=== PATIENT | male | born 1990 | race Caucasian/White ===

== ENCOUNTER 2016-10-04 21:45 | Inpatient (IN) | payer BC, OTHER ==
[~2016-10-04] VITALS: Ht 177.8 cm; Wt 65.8 kg
--- NOTE | 2016-10-05 02:15 | NUR ---
PREADMISSION NOTE: 26 years old, well-nourished caucasion male met in [facility] for nurse assess. Patient is standing very wobbly and touching various items in room, while making tic-like movements. Patient responds to nurse's greeting and introduction with no eye contact and a deep head nod. Patient asked if he feel that he will be able to participate in admission process. After some prompting from nurse for answer, patient nodded his head, 'yes', with his eyes shut. Vital signs are: 97.5-87-14 121/63, O2 Sat 97%. Patient denies pain any seizure history as well as any allergies to any food or medications. Patient given simple but clear explanations regarding [facility] floor protocols as well as medication reconciliation and controlled medications disposal policies.
[2016-10-05] MEDS ORDERED: MAG HYDROX/AL HYDROX/SIMETH 30 ML LIQUID UDC PO PRN (02:30)
[2016-10-05] MEDS ORDERED: LORAZEPAM 2 MG/1 ML VIAL IM PRN (02:30)
[2016-10-05] MEDS ORDERED: ONDANSETRON 4 MG/2 ML VIAL IM PRN (02:30)
[2016-10-05] MEDS ORDERED: CLONIDINE HCL 0.1 MG TABLET PO PRN (02:30)
[2016-10-05] MEDS ORDERED: DIAZEPAM 10 MG TABLET PO PRN ×2 (02:30)
[2016-10-05] MEDS ORDERED: LOPERAMIDE HCL 2 MG CAPSULE PO PRN ×2 (02:30)
[2016-10-05] MEDS ORDERED: DICYCLOMINE HCL 20 MG TABLET PO PRN (02:30)
[2016-10-05] MEDS ORDERED: DIAZEPAM 5 MG TABLET PO PRN (02:30)
[2016-10-05] MEDS ORDERED: ONDANSETRON ODT 4 MG TAB.RAPDIS SL PRN (02:30)
[2016-10-05] MEDS ORDERED: BUPRENORPHINE HCL 2 MG TAB.SUBL SL PRN (02:30)
--- NOTE | 2016-10-05 02:35 | NUR ---
ADMISSION NOTE: Patient admitted to [facility], room # 314, ambulatory with slightly wobbly gait, after being given tour of floor by both nurse and STATION HELPER. Patient's color is dark pink and his skin is warm, slightly moist and intact. Lung sounds are noted clearly bilaterally and active bowel sounds are noted X 4 abdominal Quads, per auscultation. Patient is oriented to person, place and his personal situation. Reoriented to day, date and time. Patient uncooperative and resistive to admission process and he states, " Why are you basking me all this question? I think that you are singling me out for some reason, I don't know". Patient must be constantly prompted and encouraged to answer admit questions and questions must repeated frequently. Patient states that he has 3 PCP's, however he "would rather not name them. Patient denies allergy or seizure history. Nutritional supplements brought with patient reconciled per protocol. Patient is admitted for: 1) heroin use, daily 2 grams, smoked. Last use 10/05/16, 1/4 gram. Patient has been using heroin for 3 years. 2) Etizolam use, daily 4 mg p.o. Last use 10/05/16 1 mg. Patient has been using Etizolam for 6 years. 3) Meth use daily, 1/4 gram smoked. Last use 10/05/16, 1/8 gram. Patient has been using meth for 7 years. 4) Phenobarbital daily use, 60 mg p.o.. Last use unknown and it is unknown just how long patient has been using phenobarbital. 5) cocaine use, " a few times per year", snorted, 3.5 grams. last use a few months ago, 4 grams. Patient states that the longest sobriety period was 7 months, from 01/2016 to 07/2016. Patient states that he has a history of anxiety and osteogenesis imperfecta and also a history of " over 50 fractures and many surgeries. V/S are: 97.5-78-16 111/63, O2 Sat 98, CIWA 13. Patient is very hostile and uncooperative and admission process was very time-consuming and difficult. Charge nurse, STATION HELPER, Rubens and this nurse had to frequently talk gently with patient about his cooperation, and redirection to appropriate behavior was constant. Patient unable to focus and was openly hostile overall. Bed is locked and in lowest position, bed rails are up X 2 and call light within patient's easy reach.
[2016-10-05 03:06] LABS: *AMPHETAMINE, URINE POSITIVE (NEGATIVE); *BARBITURATE, URINE POSITIVE (NEGATIVE); *CANNABINOID, URINE POSITIVE (NEGATIVE); *COCCAINE, URINE NEGATIVE (NEGATIVE); *OPIATE, URINE POSITIVE (NEGATIVE); *PHENCYCLIDINE SCREEN,URINE NEGATIVE (NEGATIVE)
[2016-10-05] MEDS ORDERED: MAGN400C PO (03:24)
[2016-10-05] MEDS ORDERED: MV-M1TAB37 PO (03:24)
[2016-10-05] MEDS ORDERED: NICO-724 BC (03:24)
[2016-10-05] MEDS ORDERED: DIPH25CA83 PO (03:24)
[2016-10-05] MEDS ORDERED: 5-HY50CA2 PO (03:24)
[2016-10-05] MEDS ORDERED: [UNRECOGNIZED DRUG - CODE] PO (03:24)
[2016-10-05] MEDS: METHOCARBAMOL 750 MG TABLET PO PRN ×2 (03:33→21:19)
--- NOTE | 2016-10-05 03:33 | NUR ---
PRN MEDICATION: Robaxin 750 mg p.o. given for c/o left side of face, neck and shoulder pain, 6/10 pain scale and Valium 5 mg p.o. given for "high anxiety", CIWA 8.
[2016-10-05] MEDS ORDERED: METHOCARBAMOL 750 MG TABLET ONE (03:37)
[2016-10-05] MEDS ORDERED: DIAZEPAM 5 MG TABLET ONE (03:38)
[2016-10-05 04:00] VITALS: BP 111/63
--- NOTE | 2016-10-05 04:33 | NUR ---
REASSESSMENT PRN MEDICATIONS: Patient remains awake and requesting "more medications. Patient states that he still " feels really bad" Pain level " is the same", 6/10 pain scale.
[2016-10-05] MEDS ORDERED: [UNRECOGNIZED DRUG - OTHER] PO (04:39)
[2016-10-05] MEDS ORDERED: KETOROLAC TROMETHAMINE 30 MG INJ IM ONE (05:00)
[2016-10-05] MEDS ORDERED: LORAZEPAM 1 MG TABLET PO ONE (05:00)
[2016-10-05] MEDS: diphenhydrAMINE 50 MG CAPSULE PO PRN ×2 (05:30→21:19)
--- NOTE | 2016-10-05 05:30 | NUR ---
ONE TIME Ativan, ONE TIME Toradol, and PRN Benadryl Pt c/o severe anxiety and withdrawal symptoms. Pt stated that he has the same feeling from benzodiazepine withdrawal. CIWA noted at 12. Pt also c/o pain on L shoulder due to hx of previous sx. Pain noted 9/10 on L shoulder and generalized body pain. COWS noted at 10. Pt refused PRN Subutex due to recent Heroin use and would like to prevent precipitated withdrawals. MD made aware with new order for 2mg Ativan ONE TIME and 30mg Toradol ONE TIME. New orders noted and carried out. Pt requested sleep med as he had not slept for the past night. Benadryl PRN given as ordered. Will continue to monitor.
[2016-10-05] MEDS ORDERED: diphenhydrAMINE 50 MG CAPSULE ONE (05:37)
[2016-10-05] MEDS ORDERED: KETOROLAC TROMETHAMINE 30 MG INJ ONE (05:37)
[2016-10-05] MEDS ORDERED: LORAZEPAM 1 MG TABLET ONE (05:38)
--- NOTE | 2016-10-05 06:00 | NUR ---
Ativan and Toradol Reassessment: Pt stated that he feels "a little better". Pt still reports some anxiety but less than before. Ativan effective. Pt reported relief from pain. Current pain level 5/10. Toradol PRN effective.
--- NOTE | 2016-10-05 06:30 | NUR ---
0630 Patient slept a total of 1 hour and he had 547 ml p.o. total intake. Patient had 1 void and no stools. Patient is presently sleeping with eyes closed and respirations quiet, even at 12. V/SS afebrile, last CIWA 8 at 0400, COWS 9.
--- NOTE | 2016-10-05 07:15 | NUR ---
START OF SHIFT NOTE: RECEIVED PT FROM COMMUNICATIONS EQUIPMENT INSTALLER NURSE, PT NOTED TO BE SEDATED AFTER RECEIVING MULTIPLE DOSES OF PRN MEDICATIONS, PT APPEARED TO BE ANXIOUS, AGITATED AND RESTLESS DURING ADMISSION PROCESS. [facility] OPIATE/BENZO/METH WITHDRAWAL/DEPENDENCE. PTS LAST NOTED COWS 10 AND CIWA 13. WILL MONITOR FOR S/S OF WITHDRAWAL, MEET PT'S NEEDS AND ENCOURAGE TO JOIN GROUPS AND ACTIVITIES THROUGHOUT THE SHIFT.
[2016-10-05 08:10] LABS: BASOPHILS # (AUTO) 0.1 K/uL (0.0-8.0); BASOPHILS % (AUTO) 1.1 % (0.0-2.0); EOSINOPHILS # (AUTO) 0.2 K/uL (0.0-0.7); EOSINOPHILS % (AUTO) 2.6 % (0.0-7.0); HEMATOCRIT 41.2 % (40-50); HEMOGLOBIN 13.6 G/DL (14.0-18.0); LYMPHOCYTES # (AUTO) 3.2 K/UL (0.8-4.8); LYMPHOCYTES % (AUTO) 54.4 % (20.5-51.5); MEAN CORPUSCULAR HEMOGLOBIN 28.7 UUG (27.0-31.0); MEAN CORPUSCULAR HGB CONC 33 g/dL (32.0-37.0); MEAN CORPUSCULAR VOLUME 87.2 FL (82.0-92.0); MONOCYTES # (AUTO) 0.7 K/UL (0.1-1.30); MONOCYTES % (AUTO) 12.4 % (0.0-11.0); NEUTROPHILS # (AUTO) 1.8 K/UL (1.8-8.9); NEUTROPHILS % (AUTO) 29.5 % (38.5-71.5); PLATELET COUNT (AUTO) 249 K/UL (150-450); RED BLOOD CELL COUNT(AUTO) 4.73 MIL/UL (4.7-6.1)
[2016-10-05 08:20] LABS: ALANINE AMINOTRANSFERASE 21 U/L (16-63); ALKALINE PHOSPHATASE 63 U/L (50-136); AMYLASE 40 U/L (25-115); ASPARTATE AMINOTRANSFERASE 17 U/L (15-37); BILIRUBIN,TOTAL 0.5 mg/dL (0.2-1.0); CARBON DIOXIDE 29 mmol/L (21-32); CHLORIDE 104 mmol/L (98-107); CREATININE 0.9 mg/dL (0.6-1.3); GLUCOSE 92 mg/dL (74-106); LIPASE 118 U/L (73-393); MAGNESIUM 2.3 mg/dL (1.8-2.4); POTASSIUM 3.6 mmol/L (3.5-5.1); UREA NITROGEN, BLOOD 32 mg/dL (7-18)
[2016-10-05 08:21] LABS: ETHANOL < 3 MG/DL (0-0)
[2016-10-05 08:32] LABS: THYROID STIMULATING HORMONE 0.836 mIU/mL (0.358-3.740)
[2016-10-05] MEDS: MULTIVITAMINS,THERAPEUTIC TABLET PO SCH (08:42)
[2016-10-05 08:50] VITALS: BP 100/61
--- NOTE | 2016-10-05 09:11 | NUR ---
COWS/CIWA DEFERRED PT IS SLEEPING AFTER BEING AWAKE MAJORITY OF THE NIGHT. PT'S V/S WNL.
[2016-10-05] MEDS ORDERED: NICOTINE POLACRILEX 2 MG LOZENGE BC PRN (09:45)
[2016-10-05] MEDS: BUPRENORPHINE HCL 2 MG TAB.SUBL SL SCH ×3 (12:24→21:18)
[2016-10-05] MEDS: DIAZEPAM 10 MG TABLET PO SCH ×3 (12:24→21:19)
[2016-10-05 12:28] VITALS: BP 101/62
[2016-10-05] MEDS: GABAPENTIN 300 MG CAPSULE PO SCH ×2 (15:00→21:19)
[2016-10-05 17:11] VITALS: BP 99/63
--- NOTE | 2016-10-05 18:59 | NUR ---
END OF SHIFT NOTE: PT IS IN STABLE CONDITION AT THIS TIME, PT IS ALERT AND RESTING IN BED. PT IS ADMITTED FOR OPIATE/BENZO/METH WITHDRAWAL/DEPENDENCE. PT WAS STARTED ON A CUSTOMIZED 4 DAY VALIUM AND SUBUTEX TAPER. PT IS NO LONGER AGITATED AND COMPLIANT WITH PLAN OF CARE. PT TOLERATED DOSES ADMINISTERED WITHOUT A/R NOTED. WILL ENDORSE PT TO CARPENTER'S ASSISTANT NURSE. PTS LAST COWS 3 AND CIWA 2.
--- NOTE | 2016-10-05 19:15 | NUR ---
START OF SHIFT NOTE : Patient is 26 years old male admitted to [facility] for HEROIN, ETIZOLAM, METH, COCAINE dependence on 10/05/2016 . Patient is oriented to person, place and his personal situation. Patient cooperative and friendly this time. Patient states that he has a history of anxiety and osteogenesis imperfecta and also a history of " over 50 fractures and many surgeries. Pt. complains of sleeplessness, increased level of anxiety and muscle spasm . Safety measures in place : bed on lowest position with side rails x2 up for safety, call light within reach. Will continue to monitor closely and offer help.
[2016-10-05 20:00] VITALS: BP 111/63
--- NOTE | 2016-10-05 21:00 | NUR ---
PRN VISTARIL, NICOTINE GUM, ROBAXIN, BENADRYL Pt. complains of increased level of anxiety, sleeplessness, mild muscle spasm. PRN VISTARIL , NICOTINE GUM, ROBAXIN, BENADRYL given as ordered. Safety measures in place : bed on lowest position with side rails x2 up for safety, call light within reach. Will continue to monitor closely and offer help.
[2016-10-05] MEDS: NICOTINE POLACRILEX 4 MG GUM-PK OF TEN BC PRN (21:19)
[2016-10-05] MEDS: HYDROXYZINE PAMOATE 25 MG CAPSULE PO PRN (21:19)
--- NOTE | 2016-10-05 22:00 | NUR ---
REASSESSMENT VISTARIL, NICOTINE GUM, ROBAXIN, BENADRYL Pt. is sleeping, RR=16, unlabored and even. Safety measures in place : bed on lowest position with side rails x2 up for safety, call light within reach. Will continue to monitor closely and offer help.
[2016-10-06 04:00] VITALS: BP 104/66
--- NOTE | 2016-10-06 06:33 | NUR ---
END OF SHIFT NOTE : Patient is 26 years old male admitted to [facility] for HEROIN, ETIZOLAM, METH, COCAINE dependence on 10/05/2016 . Patient is oriented to person, place and his personal situation. Patient cooperative and friendly this time. Patient states that he has a history of anxiety and osteogenesis imperfecta and also a history of " over 50 fractures and many surgeries. Pt. complains of sleeplessness, increased level of anxiety and muscle spasm . Pt remains compliant with the treatment plan. PRNs NICOTINE GUM, VISTARIL, ROBAXIN, BENADRYL given during my shift. V/S remain WNL. RR=16, even and unlabored, lungs clear upon auscultation, abdomen soft and non- distended. Pt denies nausea, vomiting and diarrhea. LAST CIWA=3 ,COWS=3 at 0400 , UCTYPI=419 ml, voided x1 , slept 3 hours. Safety measures in place : bed on lowest position with side rails x2 up for safety, call light within reach. Will continue to monitor closely and offer help.
--- NOTE | 2016-10-06 07:10 | NUR ---
Start of shift note SBAR report rcv'd. pt was admitted for opiate and benzo dependence, methamphetamine and cocaine abuse. Pt has a PMHx of anxiety and osteogenesis imperfection. Pt is on a full code, denies any allergies to any medications and is on a regular diet. All needs addressed at this time. Pt has no complaints at this time. Will continue to monitor pt.
[2016-10-06 08:00] VITALS: BP 105/74
[2016-10-06] MEDS: BUPRENORPHINE HCL 2 MG TAB.SUBL SL SCH ×3 (08:03→20:29)
[2016-10-06] MEDS: MULTIVITAMINS,THERAPEUTIC TABLET PO SCH (08:03)
[2016-10-06] MEDS: DIAZEPAM 10 MG TABLET PO SCH ×3 (08:03→20:28)
[2016-10-06] MEDS: GABAPENTIN 300 MG CAPSULE PO SCH (08:03)
[2016-10-06 08:06] LABS: HEPATITIS B SURFACE AG Negative (Negative)
[2016-10-06] MEDS ORDERED: TUBERCULIN,PURIF.PROT.DERIV. 5 TU/0.1 ML TEST ID ONE (09:00)
[2016-10-06] MEDS ORDERED: BACLOFEN 10 MG TABLET PO ONE (11:00)
[2016-10-06] MEDS ORDERED: CLONIDINE HCL 0.1 MG TABLET PO ONE (11:00)
[2016-10-06] MEDS ORDERED: DIAZEPAM 10 MG TABLET PO ONE (11:00)
[2016-10-06] MEDS: NICOTINE 21 MG/24HR PATCH TD SCH (11:12)
--- NOTE | 2016-10-06 11:45 | NUR ---
PRN administration Pt c/o pain 10/05 in shoulder, administered PRN motrin per MD order. Will continue to monitor pt.
[2016-10-06] MEDS: IBUPROFEN 400 MG TABLET PO PRN (11:46)
[2016-10-06 12:00] VITALS: BP 105/72
--- NOTE | 2016-10-06 12:15 | NUR ---
Onetime order reassessment At 1115 at time of onetime order administration, pt had a COWS of 10 and a CIWA of 10. After administration of onetime medications, pt has a COWS of 7 and CIWA of 6. Pt states "I feel much better". Will continue to monitor pt.
--- NOTE | 2016-10-06 12:44 | NUR ---
Reassessment Pt reports that his pain has reduced to a pain level of 4/10. Pt states that he is comfortable. All needs addressed at this time. Will continue to monitor pt.
[2016-10-06] MEDS: BACLOFEN 10 MG TABLET PO SCH ×2 (15:10→20:28)
[2016-10-06] MEDS: CLONIDINE HCL 0.1 MG TABLET PO SCH ×2 (15:10→20:29)
[2016-10-06] MEDS: GABAPENTIN 400 MG CAPSULE PO SCH ×2 (15:10→20:28)
[2016-10-06 16:00] VITALS: BP 115/59
[2016-10-06] MEDS: HYDROXYZINE PAMOATE 25 MG CAPSULE PO PRN (18:54)
--- NOTE | 2016-10-06 18:55 | NUR ---
PRN administration Pt c/o anxiety. Pt states that he is very anxious, requesting vistaril. Administered medication per MD order. Will endorse follow up assessment to oncoming nurse. All other needs addressed at this time.
--- NOTE | 2016-10-06 18:59 | NUR ---
End of shift note pt was admitted for opiate and benzo dependence, Phenobarbital dependence, methamphetamine and cocaine abuse. Pt has a PMHx of anxiety and osteogenesis imperfecta. Pt is on a valium and Subutex taper, and is tolerating well. Pt is on a full code, denies any allergies to any medications and is on a regular diet. At the 0800 pt had a COWS of 11 and CIWA of 13, pt was given onetime doses of valium Clonidine, valium and a nicotine patch. Pt was given full education regarding his medications with print outs. Pt verbalized his understanding. Pt verbalized his understanding that he should not smoke cigarettes while wearing the patch. At 1600 pt had a COWS of 5 and CIWA of 4. Pt states that he is comfortable at this time. Pt drank 2646ml of fluids, ate 100% of meals, had 5 voids and 2 BMs during the shift. Pt has no further complaints. Will endorse SBAR to oncoming shift.
--- NOTE | 2016-10-06 19:05 | NUR ---
Start of Shift Patient Received. Patient is in his room, awake, alert and verbally responsive. Breathing even and non labored. No signs of pain or discomfort noted. Patient is a 26 year old male that was admitted on 10/05/16 for Opiate and Etizolam Dependence. Patient was admitted under the care of Dr. Gaines and is currently receiving a 4 day Subutex and 4 day Valium taper. Patient verbalized no known allergies, wishes to be full code, following a regular diet, placed on fall and seizure precautions, skin noted intact. Per endorsement, patient was given PRN Vistaril for increased anxiety. Nicotine patch noted to the left upper extremity. All needs attended to promptly. Will continue plan of care as ordered.
[2016-10-06 20:21] VITALS: BP 112/65
[2016-10-07] VITALS: BP 102/64
[2016-10-07 04:00] VITALS: BP 102/61
--- NOTE | 2016-10-07 07:08 | NUR ---
End of Shift Patient is in bed sleeping. Breathing even and non labored. No signs of pain or discomfort noted. Patient is a 26 year old male that was admitted on 10/05/16 for Opiate and Etizolam Dependence. Patient was admitted under the care of Dr. Gaines and is currently receiving a 4 day Subutex and 4 day Valium taper. Patient verbalized no known allergies, wishes to be full code, following a regular diet, placed on fall and seizure precautions, skin noted intact. No PRN medication administered. Last noted COWS noted 4 and CIWA noted 4. All needs attended to promptly. Will endorse to continue plan of care as ordered.
--- NOTE | 2016-10-07 07:09 | NUR ---
Start of Shift Endorsement received from nightshift nurse. Pt is a 26 y/o male admitted for Heroin, Meth and Cocaine dependence. Pt has been placed on a 4 day Valium and 4 day Subutex taper. Pt is tolerating the taper and moderately withdrawing at this time AEB CIWA 4, COWS 4. Pt did not receive any PRN medications during nightshift. Pt reports sleeping 7 hours, reports feeling rested. VS WNL, Full CODE. PT is alert and oriented x4. Pt is in STABLE condition at this time. Remains compliant with medication and diet regimen. All needs have been met, All safety measures in place per hospital policy. Bed in lowest position, side rails up x2, call-light within reach. Will continue to monitor
[2016-10-07 08:00] VITALS: BP 103/64
[2016-10-07] MEDS: GABAPENTIN 400 MG CAPSULE PO SCH (08:14)
[2016-10-07] MEDS: BACLOFEN 10 MG TABLET PO SCH ×3 (08:14→20:42)
[2016-10-07] MEDS: CLONIDINE HCL 0.1 MG TABLET PO SCH ×3 (08:15→20:43)
[2016-10-07] MEDS: MULTIVITAMINS,THERAPEUTIC TABLET PO SCH (08:15)
[2016-10-07] MEDS: NICOTINE 21 MG/24HR PATCH TD SCH (08:15)
[2016-10-07] MEDS: DIAZEPAM 5 MG TABLET PO SCH ×4 (08:15→20:43)
[2016-10-07] MEDS ORDERED: BUPRENORPHINE HCL 2 MG TAB.SUBL SL SCH (09:00)
[2016-10-07] MEDS ORDERED: DIAZEPAM 5 MG TABLET PO ONE (11:00)
[2016-10-07 12:00] VITALS: BP 118/71
[2016-10-07] MEDS: GABAPENTIN 300 MG CAPSULE PO SCH ×2 (14:55→20:42)
[2016-10-07] MEDS: BUPRENORPHINE HCL 2 MG TAB.SUBL SL SCH ×2 (14:55→20:43)
[2016-10-07 16:00] VITALS: BP 120/68
--- NOTE | 2016-10-07 18:51 | NUR ---
End of Shift Endorsement given to nightshift nurse. Pt is a 26 y/o male admitted for Heroin, Meth and Cocaine dependence. Pt has been placed on a 4 day Valium and 4 day Subutex taper. Pt is tolerating the taper and moderately withdrawing at this time AEB CIWA 3, COWS 3. Pt did not receive any PRN medications. Educated pt on S/E of medications and withdrawal symptoms. Encouraged pt to participate in groups and activities. Pt participated in groups and activities. Educated pt on diet regimen and encouraged to drink more fluids. Intake: 2830ml, Void x4, BM x1. VS WNL, Full CODE. PT is alert and oriented x4. Pt is in STABLE condition at this time. Remains compliant with medication and diet regimen. All needs have been met, All safety measures in place per hospital policy. Bed in lowest position, side rails up x2, call-light within reach. Will continue to monitor
--- NOTE | 2016-10-07 19:15 | NUR ---
Start of Shift Patient Received. Patient is in his room, awake, alert and verbally responsive. Breathing even and non labored. No signs of pain or discomfort noted. Patient is a 26 year old male, admitted on 10/05/16 for Opiate and Etizolam Dependence. Patient is currently receiving a 4 day Subutex and 4 day Valium taper. No known allergies, full code, Regular diet, fall and seizure precautions, skin noted intact. Per endorsement, patients last noted CIWA 3 and COWS 3. All needs attended to promptly. Will continue plan of care as ordered.
[2016-10-07 20:32] VITALS: BP 105/72
[2016-10-08 00:10] VITALS: BP 102/63
[2016-10-08 04:30] VITALS: BP 112/72
[2016-10-08] MEDS: HYDROXYZINE PAMOATE 25 MG CAPSULE PO PRN ×3 (04:59→22:15)
[2016-10-08] MEDS: IBUPROFEN 400 MG TABLET PO PRN ×2 (04:59→10:26)
[2016-10-08] MEDS: METHOCARBAMOL 750 MG TABLET PO PRN ×2 (04:59→22:15)
--- NOTE | 2016-10-08 05:08 | NUR ---
PRN Medication Administration Patient noted awake and verbalizing increased pain to the his left shoulder of 6/10, back spasms, and increased anxiety. PRN Motrin, vistaril and robaxin administered as per order. Will continue to monitor for effectiveness.
--- NOTE | 2016-10-08 06:15 | NUR ---
PRN Medication Reassessment Patient noted in bed sleeping. Breathing even and non labored. No signs of pain or discomfort noted. PRN Motrin, Robaxin, and Vistaril administered and noted to be effective. Patient continues to sleep well with no interruption. Will continue to monitor.
--- NOTE | 2016-10-08 07:19 | NUR ---
End of Shift Patient is in bed sleeping. Breathing even and non labored. No signs of pain or discomfort noted. Patient is a 26 year old male that was admitted on 10/05/16 for Opiate and Etizolam Dependence. Patient was admitted under the care of Dr. Gaines and is currently receiving a 4 day Subutex and 4 day Valium taper. Patient verbalized no known allergies, wishes to be full code, following a regular diet, placed on fall and seizure precautions, skin noted intact. Patient was given PRN Motrin, Robaxin, and Vistaril with medication noted to be effective. All needs attended to promptly. Will endorse to continue plan of care as ordered.
[2016-10-08 08:00] VITALS: BP 110/66
[2016-10-08] MEDS: CLONIDINE HCL 0.1 MG TABLET PO SCH ×3 (08:17→20:23)
[2016-10-08] MEDS: GABAPENTIN 300 MG CAPSULE PO SCH ×3 (08:17→20:22)
[2016-10-08] MEDS: DIAZEPAM 5 MG TABLET PO SCH ×3 (08:17→20:23)
[2016-10-08] MEDS: BACLOFEN 10 MG TABLET PO SCH ×3 (08:17→20:23)
[2016-10-08] MEDS: MULTIVITAMINS,THERAPEUTIC TABLET PO SCH (08:19)
[2016-10-08] MEDS: BUPRENORPHINE HCL 2 MG TAB.SUBL SL SCH ×3 (08:20→20:22)
[2016-10-08] MEDS: ACETAMINOPHEN 325 MG TABLET PO PRN ×2 (08:21→20:23)
--- NOTE | 2016-10-08 08:21 | NUR ---
PRN TYLENOL Patient complains of of back pain and L shoulder pain 06/05. PRN Tylenol given. Will continue to monitor patient.
--- NOTE | 2016-10-08 08:30 | NUR ---
START OF SHIFT Received report from enterprise resource analyst nurse. Patient is 26 year old male admitted for medically supervised withdrawal from heroin and sedative-hypnotics. Patient is full code with NKA. On assessment this AM:COWS: 2. Denies SOB, chest pain. Vitals signs: WNL. Reports tremors, sweating, and anxiety, backache and L shoulder pain 06/05. Med compliant with AM meds. On 4-Day Sutubex and 4-day Valium taper. PRN Tylenol given. Encouraged patient to hydrate with fluids. Patient consumed about 75% of his breakfast. Patient was encouraged to attend group meetings today. Patient goes out for smoke with escorts. Will continue to monitor patient.
[2016-10-08] MEDS: NICOTINE 21 MG/24HR PATCH TD SCH ×2 (09:00→13:06)
--- NOTE | 2016-10-08 09:21 | NUR ---
REASSESSMENT PRN TYLENOL Patient reports decreased pain, 2/10 at this time.
--- NOTE | 2016-10-08 10:26 | NUR ---
RN NOTE Patient reports he cut himself on L eye with the edge of the bathroom sink when he tried to supervisor metal hanging an item he dropped. Very small laceration noted with small amount of blood. Wound area was cleansed with gauze and NS, refused to have it covered with bandaid. Kept open to air at this time per patient's request, pt. requesting for ointment to protect wound.
--- NOTE | 2016-10-08 10:26 | NUR ---
PRN IBUPROFEN Patient complains of pain 6/10 on his L side of his eye, PRN ibuprofen given, will continue to monitor patient.
[2016-10-08] MEDS ORDERED: METHYL SALICYLATE/MENTHOL CREAM 28 GM TUBE TOP PRN (11:15)
--- NOTE | 2016-10-08 11:26 | NUR ---
REASSESSMENT PRN IBUPROFEN Patient reports pain decreased to 3/10.
[2016-10-08 12:00] VITALS: BP 99/56
--- NOTE | 2016-10-08 12:45 | NUR ---
PRN VISTARIL Patient complains of anxiety, prn vistaril given.
[2016-10-08] MEDS: NICOTINE POLACRILEX 4 MG GUM-PK OF TEN BC PRN ×3 (13:06→22:16)
[2016-10-08] MEDS: NEOMY/BACITRAC/POLYMI OINT 28.35 GM TUBE TOP SCH ×2 (13:07→17:29)
--- NOTE | 2016-10-08 13:45 | NUR ---
REASESSMENT VISTARIL PAtient reports anxiety decreased.
--- NOTE | 2016-10-08 14:35 | NUR ---
REASSESSMENT CLONIDINE Patient reports anxiety decreased
--- NOTE | 2016-10-08 15:35 | NUR ---
PRN CLONIDINE Patient complains of anxiety. PRN clonidine givne, BP 112/70
[2016-10-08 16:00] VITALS: BP 108/68
[2016-10-08] MEDS: MIRALAX 17 GM POWD.PACK PO PRN (17:28)
--- NOTE | 2016-10-08 17:28 | NUR ---
PRN MIRALAX POWDER Patient complains of constipation, PRN miralax given
--- NOTE | 2016-10-08 17:28 | NUR ---
PRN BENGAY Patient complains of pain on L shoulder 5.10. PRN bengay cream given
--- NOTE | 2016-10-08 18:28 | NUR ---
REASSESSMENT [facility] PAtient reposrts pain decreased 3/10.
--- NOTE | 2016-10-08 18:28 | NUR ---
REASSESSMENT MIRALAX Patient has not no BM at this time. Will continue to monitor effectiveness of med
[2016-10-08 20:00] VITALS: BP 104/65
--- NOTE | 2016-10-08 20:00 | NUR ---
START OF SHIFT NOTE PATIENT IN HIS ROOM, UPON GREETING , PATIENT STATES HE'S ANXIOUS, SWEATING, HAS STUFFY NOSE, STOMACH CRAMPS, OBSERVED TREMORS, C/O GENERALIZED BODY ACHES 7/10, UNABLE TO PASS STOOL, PER PATIENT MIRALAX DID NOT WORK,NO N/V, APPETITE IS GOOD AND DRINKING FLUIDS WELL. RECEIVED REPORT FROM DAY SHIFT NURSE. PATIENT IS A 26 YEAR OLD MALE, ADMITTED FOR SANDRA/ETIZOLAM/PHENOBARBITAL,METH AND COCAINE DEPENDENCE. PATIENT IS ON 4TH DAY OF HIS 4 DAY SUBUTEX AND VALIUM TAPER. PATIENT IS FULL CODE, REGULAR DIET AND NO KNOWN ALLERGY. UPON ADMISSION, PATIENT REPORTED USING HEROIN 2 GRAMS FOR 2 1/2 YEARS, ETIZOLAM 4 MG FOR "COUPLE OF WEEKS",METH 1/4 GRAM FOR 2 YEARS, COCAINE 3.5 GRAMS (FEW TIMES PER YEAR) FOR 8 YEARS AND PHENOBARBITAL 60 MG FOR 3 MONTHS. PATIENT REPORTS PMH OF ANXIETY AND OSTEOGENESIS IMPERFECTA. NO SEIZURE HISTORY. PATIENT HAD SMALL LACERATION ON LEFT EYE WITH TRIPLE ANTIBIOTIC TREATMENT. PATIENT WAS GIVEN MIRALAX , VISTARIL, IBUPROFEN, BENGAY AND NICOTINE GUM. LAST COWS 4 AND CIWA 4. ON FALL PRECAUTION. SAFETY MEASURES IN PLACE. CALL LIGHT IN REACH. WILL CONTINUE TO MONITOR
[2016-10-08] MEDS: MAGNESIUM HYDROXIDE 30 ML LIQUID UDC PO PRN (20:23)
[2016-10-08] MEDS: diphenhydrAMINE 50 MG CAPSULE PO PRN (20:23)
--- NOTE | 2016-10-08 20:23 | NUR ---
PRN MOM/TYLENOL/BENADRYL ADMINISTRATION PATIENT C/O CONSTIPATION, GENERALIZED BODY ACHES 10/05 AND REQUESTS FOR SLEEP AID . PRN MOM,TYLENOL AND BENADRYL GIVEN. WILL MONITOR FOR EFFECTIVENESS
--- NOTE | 2016-10-08 21:23 | NUR ---
PRN TYLENOL RE-ASSESSMENT PATIENT STATES PAIN LEVEL 4/10 AT THIS TIME, TOLERABLE . WILL CONTINUE TO MONITOR
--- NOTE | 2016-10-08 22:15 | NUR ---
PRN NICOTINE GUM/ROBAXIN AND VISTARIL ADMINISTRATION PATIENT C/O 6/10 BACK PAIN , ANXIETY AND REQUESTS FOR NICOTINE GUM. PRN ROBAXIN , VISTARIL AND NICOTINE GUM GIVEN. WILL MONITOR FOR EFFECTIVENESS
--- NOTE | 2016-10-09 | NUR ---
COWS/CIWA/VS PATIENT ASLEEP. CIWA/COWS UNABLE TO ASSESS. NO S/S OF DISTRESS. RESPIRATION EVEN AND UNLABORED. RR 14. SAFETY MEASURES IN PLACE. CALL LIGHT IN REACH. WILL CONTINUE TO MONITOR
--- NOTE | 2016-10-09 04:00 | NUR ---
COWS/CIWA/VS PATIENT ASLEEP. CIWA/COWS UNABLE TO ASSESS. NO S/S OF DISTRESS. RESPIRATION EVEN AND UNLABORED. RR 15. SAFETY MEASURES IN PLACE. CALL LIGHT IN REACH. WILL CONTINUE TO MONITOR
--- NOTE | 2016-10-09 07:12 | NUR ---
END OF SHIFT NOTE MONITORED PATIENT THROUGHOUT THE SHIFT. PATIENT STATES HE'S ANXIOUS, SWEATING, HAS STUFFY NOSE, STOMACH CRAMPS, OBSERVED TREMORS, C/O GENERALIZED BODY ACHES 7/10, UNABLE TO PASS STOOL, PER PATIENT MIRALAX DID NOT WORK,NO N/V, APPETITE IS GOOD AND DRINKING FLUIDS WELL BEGINNING OF SHIFT. PATIENT IS A 26 YEAR OLD MALE, ADMITTED FOR SANDRA/ETIZOLAM/PHENOBARBITAL,METH AND COCAINE DEPENDENCE. PATIENT IS ON 4TH DAY OF HIS 4 DAY SUBUTEX AND VALIUM TAPER, TOLERATED WELL. NO ADVERSE REACTION. PATIENT IS FULL CODE, REGULAR DIET AND NO KNOWN ALLERGY. UPON ADMISSION, PATIENT REPORTED USING HEROIN 2 GRAMS FOR 2 1/2 YEARS, ETIZOLAM 4 MG FOR "COUPLE OF WEEKS",METH 1/4 GRAM FOR 2 YEARS, COCAINE 3.5 GRAMS (FEW TIMES PER YEAR) FOR 8 YEARS AND PHENOBARBITAL 60 MG FOR 3 MONTHS. PATIENT REPORTS PMH OF ANXIETY AND OSTEOGENESIS IMPERFECTA. NO SEIZURE HISTORY. PATIENT HAD SMALL LACERATION ON LEFT EYE WITH TRIPLE ANTIBIOTIC TREATMENT. PATIENT WAS GIVEN MOM, TYLENOL AND BENADRYL AT 2022 , VISTARIL, ROBAXIN AND NICOTINE GUM AT 2214. PATIENT COMPLIANT WITH MEDICATIONS AND TREATMENT PLAN. ON FALL PRECAUTION. SAFETY MEASURES IN PLACE. CALL LIGHT IN REACH. WILL CONTINUE TO MONITOR. SLEPT 1 HOUR, PATIENT STATES HE TRIED TO SLEEP BUT UNABLE TO. FLUID INTAKE 1,300 ML. VOIDED X 4. NO BM. LAST COWS 9 AND CIWA 6. MOM NOT EFFECTIVE, ENDORSED TO NEXT SHIFT. CONTINUE TO ENCOURAGE FLUIDS.
[2016-10-09 08:00] VITALS: BP 107/63
[2016-10-09] MEDS: BACLOFEN 10 MG TABLET PO SCH ×3 (08:43→20:49)
[2016-10-09] MEDS: MULTIVITAMINS,THERAPEUTIC TABLET PO SCH (08:46)
[2016-10-09] MEDS: GABAPENTIN 300 MG CAPSULE PO SCH ×3 (08:46→20:49)
[2016-10-09] MEDS: DIAZEPAM 5 MG TABLET PO SCH ×2 (08:46→20:49)
[2016-10-09] MEDS: NEOMY/BACITRAC/POLYMI OINT 28.35 GM TUBE TOP SCH ×2 (08:47→17:08)
[2016-10-09] MEDS: BUPRENORPHINE HCL 2 MG TAB.SUBL SL SCH ×2 (08:47→20:50)
[2016-10-09] MEDS: NICOTINE 21 MG/24HR PATCH TD SCH (08:48)
[2016-10-09] MEDS: IBUPROFEN 600 MG TABLET PO PRN ×2 (08:51→20:59)
[2016-10-09] MEDS: METHOCARBAMOL 750 MG TABLET PO PRN ×2 (08:51→23:09)
--- NOTE | 2016-10-09 08:51 | NUR ---
PRN ROBAXIN AND IBUPROFEN Patient complains of pain 6/10 on L eye and L shoulder. PRN Robaxin and ibuprofen given. Will continue to monitor patient.
[2016-10-09] MEDS ORDERED: BUPRENORPHINE HCL 2 MG TAB.SUBL SL SCH (09:00)
[2016-10-09] MEDS: CLONIDINE HCL 0.1 MG TABLET PO SCH ×3 (09:00→20:49)
[2016-10-09] MEDS: MIRALAX 17 GM POWD.PACK PO PRN (09:27)
--- NOTE | 2016-10-09 09:27 | NUR ---
PRN MIRALAX POWDER Patient complains of constipation, prn miralax powder given. Will continue to monitor patient.
--- NOTE | 2016-10-09 09:49 | NUR ---
START OF SHIFT Received report from shift superintendent nurse. Patient is 26 year old male admitted for medically supervised withdrawal from heroin and sedative-hypnotics. Patient is full code with NKA. On assessment this AM: CIWA = 9 and COWS: 8. Denies SOB, chest pain. Vitals signs: 107/63, HR 53, RR16, 99% 02 sat RA, T 98.1, 6/10 pain WNL. Reports tremors, mild sweating, anxiety, mild headache, pain on lateral side of L eye and L shoulder, 6/10. Complained of constipation. On 4-Day Sutubex and 4-day Valium taper. PRN Robaxin, ibuprofen and miralax powder given. Held nicotine patch, wants to smoke. Held clonidine (BP 107/63, recheck after smoke break BP 96/56). Encouraged patient to hydrate with fluids. Patient consumed about 100% of his breakfast. Patient has small cut on lateral side of L eye, keep open to air. Patient was encouraged to attend group meetings today. At beginning of shift, patient requested for his smoke pass but was informed by conventional underwriter to wait for two more minutes for his medications and he will be next to receive his medications. He went to the charge nurse requesting to change his nurse after he gets his AM meds.
--- NOTE | 2016-10-09 09:51 | NUR ---
REASSESSMENT PRN ROBAXIN AND IBUPROFEN Patient reports decreased pain 3/10.
--- NOTE | 2016-10-09 10:03 | NUR ---
Endorsed patient to HANANE Gregory.
--- NOTE | 2016-10-09 10:10 | NUR ---
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 Last of 5 day Valium/Subutex taper, tolerating well, last COWS 8/ CIWA 9 @ 0900.Client is in room, he is a/o x 4, he presents with anxious mood, flat affect. Client appears irritable, skin warm to touch, abdomen soft, nontender, quadrant x 4 active. Encourage client to increase fluid intake to facilitate detox and a bowel movement. Encourage client to attend group therapy for skills to maintain sobriety. History of withdrawal induced seizures. Client is on seizure precautions. NKA, full code, regular diet. Call light within reach. Side rails x 2 up/padded. Will continue to monitor.
[2016-10-09] MEDS ORDERED: DIAZEPAM 10 MG TABLET PO ONE (10:30)
[2016-10-09] MEDS: NICOTINE POLACRILEX 4 MG GUM-PK OF TEN BC PRN ×2 (12:07→14:22)
[2016-10-09] MEDS: ACETAMINOPHEN 325 MG TABLET PO PRN (12:07)
--- NOTE | 2016-10-09 12:07 | NUR ---
PRN Tylenol 650mg and Nicotine gum 4mg Client repots R shoulder pain 7/10 Tylenol 650 mg PO administere, he requested Nicotine gum 4mg for cravings. Will continue to monitor.
[2016-10-09 12:55] VITALS: BP 110/65
--- NOTE | 2016-10-09 14:00 | NUR ---
Per Dr. Gaines client is okay not to have a chest x-ray for medical clearance for TB, charge nurse made aware.
[2016-10-09] MEDS: KETOROLAC TROMETHAMINE 30 MG INJ IM PRN (14:10)
--- NOTE | 2016-10-09 14:10 | NUR ---
PRN Toradol 30mg Inj Client repots R shoulder pain 11/05 Toradol 30mg Inj IM administered to L deltoid. Will continue to monitor.
--- NOTE | 2016-10-09 14:22 | NUR ---
PRN Nicotine gum 4mg for cravings. Will continue to monitor.
--- NOTE | 2016-10-09 14:40 | NUR ---
Reassessment PRN Toradol 30mg Inj Client repots R shoulder pain 2/10 after Toradol 30mg Inj but tolerable. Will continue to monitor.
[2016-10-09] MEDS ORDERED: NICOTINE 14 MG/24HR PATCH TD ONE (15:00)
--- NOTE | 2016-10-09 15:22 | NUR ---
Reassessment PRN Nicotine 4mg client stated "The gum did not help my cravings this time."
--- NOTE | 2016-10-09 15:23 | NUR ---
Client refused Nicotine patch.
[2016-10-09] MEDS ORDERED: MAGNESIUM CITRATE 296 ML BOTTLE PO ONE (16:45)
[2016-10-09 16:55] VITALS: BP 108/58
--- NOTE | 2016-10-09 17:42 | NUR ---
Client reports constipation, Dr Gaines ordered Magnesium Citrate 296mL, client refused medication, stating "I would just rather wait and see if the prune juice or miralax help."
--- NOTE | 2016-10-09 18:18 | NUR ---
END OF SHIFT Will endorse client to incoming nurse, Client is in bed, a/o x 4, depressed mood, flat affect, moist skin irritability and fatigue are some of withdrawal symptoms experienced by the client and managed with Ativan/Subutex taper (Day 4 of 5 ), tolerating well, last COWS 4/CIWA 3 @ 1600. Client is fully ambulatory. PRN Nicotine gum x 2 , Tylenol, Toradol inj for pain on R shoulder, and Miralax for constipation, noted effective. Abrasion on L outer eye, healing. Client was compliant with 2/3 group therapy. Client consumes 100% of meals, adequate PO fluid intake 2675mL, void x 5, stool x 1. Call light within reach. Safety measures rendered and all needs met.
[2016-10-09 20:00] VITALS: BP 105/68
--- NOTE | 2016-10-09 20:00 | NUR ---
START OF SHIFT Received report from day shift nurse. Pt attended a group meeting and returned to his room after. He is a 26 yo male admitted to [facility] on 10/05 for heroin, etizolam, methamphetamine, Phenobarbital, and cocaine dependence. He is A&O x4 and ambulatory. NKA, full code status, and on a regular diet. He has a PMH of anxiety and osteogenesis imperfect. On admission he reported using heroin 2 grams per day, etizolam 4mg per day, methamphetamine 0.25grams, cocaine 3.5 grams, and Phenobarbital 60mg. Pt started a 4 day Subutex and 4 day valium taper on 10/05. He reports anxiety and is observed to have hand tremors and moist skin. Tapers due tonight. Fall precautions in place.
[2016-10-09] MEDS: MAGNESIUM HYDROXIDE 30 ML LIQUID UDC PO PRN (21:07)
--- NOTE | 2016-10-09 21:09 | NUR ---
PRN Motrin and Milk of Magnesia Pt c/o right shoulder pain 09/05. PRN Motrin administered. Pt reports constipation. He states that he had one BM today but feels as if he still has to go. PRN Milk of Magnesia administered.
--- NOTE | 2016-10-09 22:09 | NUR ---
PRN Motrin and Milk of Magnesia reassessment PRN Motrin somewhat effective. Pt reports right shoulder pain is reduced to 3/10. Pt has not yet had a BM.
[2016-10-09 23:05] VITALS: BP 97/56
[2016-10-09] MEDS: HYDROXYZINE PAMOATE 25 MG CAPSULE PO PRN (23:08)
[2016-10-09] MEDS: TRAZODONE 100 MG TABLET PO PRN (23:09)
--- NOTE | 2016-10-09 23:10 | NUR ---
PRN Robaxin, Vistaril, and Trazodone Pt c/o generalized body aches, anxiety, and inability to sleep. PRN Robaxin, Vistaril, and Trazodone administered.
[2016-10-10] VITALS: BP 97/56
--- NOTE | 2016-10-10 00:10 | NUR ---
PRN Robaxin, Vistaril, and Trazodone reassessment PRN Robaxin, Vistaril, and Trazodone effective. Pt is lying in bed resting with eyes closed. Respirations even and unlabored. Safety measures in place.
--- NOTE | 2016-10-10 04:00 | NUR ---
0400 Vitals refused. COWS and CIWA deferred. Pt refused to be woken for 0400 vitals. Respirations even and unlabored. COWS and CIWA ordered Q4HWA. Safety measures in place.
--- NOTE | 2016-10-10 07:10 | NUR ---
END OF SHIFT Report provided to day shift nurse. Pt is lying in bed resting. He is a 26 [facility] heroin, etizolam, methamphetamine, Phenobarbital, and cocaine dependence. He is A&O ambulatory. NKA, full code status, and on a regular diet. He has a PMH of anxiety and osteogenesis imperfect. On admission he reported using heroin 2 grams per day, etizolam 4mg per day, methamphetamine 0.25grams, cocaine 3.5 grams, and Phenobarbital 60mg. Pt started a 4 day Subutex and 4 day valium taper on 10/05. He has continued anxiety. PRN Motrin, Milk of Magnesia, Trazodone, Robaxin, and Vistaril. No BM reported yet. Last COWS 4 and CIWA 5. He drank 750mL and slept for 7 hours. Fall precautions in place.
--- NOTE | 2016-10-10 07:20 | NUR ---
Start Of Shift Report Received. Pt is a 26 y/o male admitted for withdrawal from heroin and sedative-hypnotics. Full code, regular diet on fall and seizure precautions denies any food or drug allergies. Pt is on his 5 day Valium and 5 Subutex taper, tolerating well, last COWS 4 CIWA 5 @ 0400.Pt received PRN medication last night including Robaxin, MOM, Vistaril, Trazodone, and Motrin. All medications effective per warehouse worker 2nd shift nurse. Encourage client to increase fluid intake to facilitate detox and a bowel movement. Encourage client to attend group therapy for skills to maintain sobriety. Pt slept a total of 7 hours last night, all safety measures in place, bed locked in lowest position, will continue to monitor and provide care.
[2016-10-10 08:00] VITALS: BP 109/61
[2016-10-10] MEDS ORDERED: DIAZEPAM 5 MG TABLET PO SCH (09:00)
[2016-10-10] MEDS: NEOMY/BACITRAC/POLYMI OINT 28.35 GM TUBE TOP SCH ×2 (09:00→17:00)
[2016-10-10] MEDS ORDERED: BUPRENORPHINE HCL 2 MG TAB.SUBL SL SCH (09:00)
[2016-10-10] MEDS: MULTIVITAMINS,THERAPEUTIC TABLET PO SCH (09:05)
[2016-10-10] MEDS: GABAPENTIN 300 MG CAPSULE PO SCH ×3 (09:05→20:56)
[2016-10-10] MEDS: CLONIDINE HCL 0.1 MG TABLET PO SCH ×3 (09:06→20:56)
[2016-10-10] MEDS: BUPRENORPHINE HCL 2 MG TAB.SUBL SL SCH ×2 (09:06→20:58)
[2016-10-10] MEDS: BACLOFEN 10 MG TABLET PO SCH ×3 (09:06→20:57)
[2016-10-10] MEDS: DIAZEPAM 5 MG TABLET PO SCH ×2 (09:07→20:56)
[2016-10-10] MEDS: NICOTINE 21 MG/24HR PATCH TD SCH (09:11)
[2016-10-10 12:00] VITALS: BP 100/60
[2016-10-10] MEDS ORDERED: DIAZEPAM 5 MG TABLET PO ONE (13:00)
[2016-10-10] MEDS ORDERED: HYDROXYZINE PAMOATE 25 MG CAPSULE PO SCH (14:30)
[2016-10-10 16:00] VITALS: BP 125/80
[2016-10-10] MEDS: HYDROXYZINE PAMOATE 25 MG CAPSULE PO SCH ×2 (18:51→23:31)
--- NOTE | 2016-10-10 19:20 | NUR ---
Start of Shift Pt is 26 year old male admitted for heroin and sedative-hypnotics, placed on Subutex and Valium taper. Pt reported using Heroin via smoke 2 grams/daily, Etizolam 4mg/daily, Meth 1/4 grams/daily, Cocaine 3.5 g "few times a year" and Phenobarbital 60mg/daily. PMH: Anxiety and Ontogenesis Imperfecta. NKA, regular diet, fall/seizure precautions and full code. Upon assessment, pt presents with anxiety, reports feeling restlessness, mild chills and body aches, respirations even/unlabored, denies SOB/chest pain, denies n/v/d, bowel sounds active x4, abdomen soft. Safety measures in place, call light within reach, side rails up x2, bed locked and in low position. Will continue to monitor. Addendum: 10/10/16 at 6414 by SADI MORALES RN WRONG TIME
[2016-10-10] MEDS: IBUPROFEN 600 MG TABLET PO PRN (19:24)
--- NOTE | 2016-10-10 19:27 | NUR ---
End Of Shift Pt is a 26 y/o male admitted for withdrawal from heroin and sedative-hypnotics. Full code, regular diet on fall and seizure precautions denies any food or drug allergies. Pt is on his 5 day Valium and 5 Subutex taper, tolerating well, Pt remains compliant with the treatment plan. Patient encouraged adequate PO fluid intake as tolerated. Upon assessment patient presented with mild anxiety, and barely sweating with his last COWS score was a 4 and his CIWA was a 5. @1600. Detox medication effective at reducing withdrawal symptoms. Patient encouraged to attend group therapies/sessions to learn new coping skills to recent relapse, patient denies SI/HI. Pt ate all of the meals with total fluid intake 3913 ml with 5 void and 1 bowel movement Pt received onetime Valium 5mg per MD order for anxiety. Safety measures in place. Call light kept within reach. Patient endorsed to operation shift supervisor nurse, all pertinent information discussed.
--- NOTE | 2016-10-10 19:28 | NUR ---
Start of Shift Pt is 26 year old male admitted for heroin and sedative-hypnotics, placed on Subutex and Valium taper. Pt reported using Heroin via smoke 2 grams/daily, Etizolam 4mg/daily, Meth 1/4 grams/daily, Cocaine 3.5 g "few times a year" and Phenobarbital 60mg/daily. PMH: Anxiety and Ontogenesis Imperfecta. NKA, regular diet, fall/seizure precautions and full code. Upon assessment, pt presents with anxiety, reports feeling restlessness, mild chills and body aches, respirations even/unlabored, denies SOB/chest pain, denies n/v/d, bowel sounds active x4, abdomen soft. Safety measures in place, call light within reach, side rails up x2, bed locked and in low position. Will continue to monitor.
--- NOTE | 2016-10-10 19:29 | NUR ---
PRN Administration Pt reports headache, rated 6/10, requests relief. Motrin 600mg PRN administered. Safety measures in place, will continue to monitor.
[2016-10-10 20:00] VITALS: BP 113/68
--- NOTE | 2016-10-10 20:29 | NUR ---
PRN Reassessment Upon reassessment, pt reports headache is subsiding, rated 2/10. Needs met, safety measures in place, will continue to monitor.
[2016-10-10] MEDS: TRAZODONE 100 MG TABLET PO PRN (23:31)
[2016-10-10] MEDS: METHOCARBAMOL 750 MG TABLET PO PRN (23:31)
[2016-10-10] MEDS: NICOTINE POLACRILEX 4 MG GUM-PK OF TEN BC PRN (23:31)
--- NOTE | 2016-10-10 23:31 | NUR ---
PRN Administration Pt reports muscle aches, requests aid to help him sleep. Robaxin 750mg PRN and Trazodone 100mg PRN administered. Safety measures in place, will continue to monitor.
[2016-10-11] VITALS: BP 121/53
--- NOTE | 2016-10-11 00:32 | NUR ---
PRN Reassessment Upon reassessment, pt is sleeping, no s/s of acute distress noted, respirations even/unlabored. Safety measures in place, will continue to monitor.
--- NOTE | 2016-10-11 04:00 | NUR ---
Pt refused to be woken up for 0400 Vital Signs COWS/CIWA deferred d/t pt sleeping, to assess while pt is awake as ordered Safety measures in place, will continue to monitor.
[2016-10-11] MEDS: HYDROXYZINE PAMOATE 25 MG CAPSULE PO SCH ×3 (06:48→18:43)
--- NOTE | 2016-10-11 07:00 | NUR ---
End of Shift Pt is 26 year old male admitted for heroin and sedative-hypnotics, placed on Subutex and Valium taper. Pt reported using Heroin via smoke 2 grams/daily, Etizolam 4mg/daily, Meth 1/4 grams/daily, Cocaine 3.5 g "few times a year" and Phenobarbital 60mg/daily. PMH: Anxiety and Ontogenesis Imperfecta. NKA, regular diet, fall/seizure precautions and full code. During, pt presented with anxiety, reports feeling restlessness, mild chills and body aches - effective in management of s/s of withdrawal, evidenced by COWS 3 and CIWA 4. Motrin 600mg PRN administered for headache, along with Robaxin 750mg PRN and Trazodone 100mg PRN for reports of body aches and difficulty sleeping. Nicotine 4mg PRN administered. pt slept for 5 hours, intake of 2092 ml PO, voids x3, and stool x0. Safety measures in place, call light within reach, side rails up x2, bed locked and in low position. Endorsed to day shift nurse.
--- NOTE | 2016-10-11 07:03 | NUR ---
Start of Shift Endorsement received from nightshift nurse. Pt is a 26 y/o male admitted for Heroin, Meth and Cocaine dependence. Pt has been placed on a 4 day Valium and 4 day Subutex taper. Pt is tolerating the taper and moderately withdrawing at this time AEB CIWA 4, COWS 3 at 0400. Pt received PRN Trazodone, Robaxin, Nicotine gum and Motrin. Pt reports sleeping 5 hours, reports feeling rested. VS WNL, Full CODE. PT is alert and oriented x4. Pt is in STABLE condition at this time. Remains compliant with medication and diet regimen. All needs have been met, All safety measures in place per hospital policy. Bed in lowest position, side rails up x2, call-light within reach. Will continue to monitor
[2016-10-11 08:00] VITALS: BP 99/66
[2016-10-11] MEDS: MULTIVITAMINS,THERAPEUTIC TABLET PO SCH (08:50)
[2016-10-11] MEDS: GABAPENTIN 300 MG CAPSULE PO SCH ×3 (08:50→20:08)
[2016-10-11] MEDS: BACLOFEN 10 MG TABLET PO SCH ×3 (08:50→20:07)
[2016-10-11] MEDS: CLONIDINE HCL 0.1 MG TABLET PO SCH ×3 (08:50→21:24)
[2016-10-11] MEDS: NEOMY/BACITRAC/POLYMI OINT 28.35 GM TUBE TOP SCH ×2 (08:51→16:21)
[2016-10-11] MEDS: NICOTINE 21 MG/24HR PATCH TD SCH (08:51)
[2016-10-11] MEDS ORDERED: BUPRENORPHINE HCL 2 MG TAB.SUBL SL SCH (09:00)
[2016-10-11 11:41] LABS: *AMPHETAMINE, URINE NEGATIVE (NEGATIVE); *BARBITURATE, URINE POSITIVE (NEGATIVE); *CANNABINOID, URINE NEGATIVE (NEGATIVE); *COCCAINE, URINE NEGATIVE (NEGATIVE); *OPIATE, URINE NEGATIVE (NEGATIVE); *PHENCYCLIDINE SCREEN,URINE NEGATIVE (NEGATIVE)
[2016-10-11 12:00] VITALS: BP 92/57
[2016-10-11] MEDS: IBUPROFEN 600 MG TABLET PO PRN (12:31)
[2016-10-11] MEDS: METHOCARBAMOL 750 MG TABLET PO PRN ×2 (12:31→21:24)
[2016-10-11] MEDS ORDERED: DIAZEPAM 5 MG TABLET PO ONE (14:00)
[2016-10-11 16:00] VITALS: BP 94/54
[2016-10-11] MEDS ORDERED: METH-406 PO (18:17)
[2016-10-11] MEDS ORDERED: TRAZ-147 PO (18:17)
[2016-10-11] MEDS ORDERED: GABA-534 PO (18:17)
[2016-10-11] MEDS ORDERED: CLON0.1T14 PO (18:17)
[2016-10-11] MEDS ORDERED: BACL10TA PO (18:17)
--- NOTE | 2016-10-11 19:11 | NUR ---
End of Shift Endorsement given to nightshift nurse. Pt is a 26 y/o male admitted for Heroin, Meth and Cocaine dependence. Pt has been placed on a 4 day Valium and 4 day Subutex taper. Pt is tolerating the taper and moderately withdrawing at this time AEB CIWA 3, COWS 3 at 1600. Pt received PRN Robaxin and Motrin for left shoulder pain. Pt participated in groups and activities. Educated pt on S/E of medications and diet regimen. Intake: 2000ml, Void x5, BM x0. VS WNL, Full CODE. PT is alert and oriented x4. Pt is in STABLE condition at this time. Remains compliant with medication and diet regimen. All needs have been met, All safety measures in place per hospital policy. Bed in lowest position, side rails up x2, call-light within reach. Will continue to monitor
--- NOTE | 2016-10-11 19:15 | NUR ---
Start of Shift Notes: Report received from day shift nurse. Pt is a 26M, admitted for Opiate, Benzo, Barbiturate dependence on 10/05/16. Pt attended H&I panel upon the start of shift. Pt is AOx4 without s/s of acute distress. Pt is full code, on regular diet, and on fall/seizure precautions. Pt reports hx of Anxiety and Osteogenesis Imperfecta. Pt has completed Subutex and Valium taper and is scheduled for discharge in the afternoon. Pt's last COWS was 2 and CIWA was 3 at 1600. Bed in lowest position. Side rails up x2. Call light functioning and within reach. All needs attended and met. Will continue to monitor.
[2016-10-11 20:00] VITALS: BP 112/55
[2016-10-11] MEDS: KETOROLAC TROMETHAMINE 30 MG INJ IM PRN (20:07)
--- NOTE | 2016-10-11 20:07 | NUR ---
Toradol PRN: Pt c/o left arm pain. Pain level 8/10. Toradol PRN given as ordered. Will continue to monitor.
--- NOTE | 2016-10-11 21:00 | NUR ---
Toradol reassessment: Pt reported some relief from pain. Pain level 4/10. Toradol PRN effective.
[2016-10-11] MEDS: MAGNESIUM HYDROXIDE 30 ML LIQUID UDC PO PRN (21:24)
--- NOTE | 2016-10-11 21:24 | NUR ---
Milk of Magnesia and Robaxin PRN: Pt c/o muscle aches and constipation. Milk of Magnesia PRN and Robaxin PRN given as ordered. Will continue to monitor.
[2016-10-11] MEDS: NICOTINE POLACRILEX 4 MG GUM-PK OF TEN BC PRN (21:26)
[2016-10-11] MEDS: TRAZODONE 100 MG TABLET PO PRN (21:31)
--- NOTE | 2016-10-12 | NUR ---
Vitasril, Vitals and COWS/CIWA refused: Pt refused vitals to be taken. Pt stated he wanted to sleep to get ready for his discharge in the morning. Unable to assess COWS/CIWA while pt is asleep. Will continue to monitor. Addendum: 10/12/16 at 0633 by SELENA LUGO RN Pt also refused to take Vistaril
--- NOTE | 2016-10-12 04:00 | NUR ---
Vitals and COWS/CIWA refused: Pt refused vitals to be taken. Pt wanted to continue sleeping. Unable to assess COWS/CIWA while pt is asleep. Will continue to monitor.
[2016-10-12] MEDS: HYDROXYZINE PAMOATE 25 MG CAPSULE PO SCH ×3 (06:00→12:22)
--- NOTE | 2016-10-12 06:00 | NUR ---
Vistaril refused: Pt refused to take Vistaril. Pt stated he wanted to stay asleep for the morning. Will continue to monitor.
--- NOTE | 2016-10-12 07:14 | NUR ---
End of Shift Notes: Pt is 26M, admitted for Opiate, Benzo, Barbiturate dependence on 10/05/16. Pt is full code, on regular diet, and on fall/seizure precautions. Pt noted with NKA. Pt has completed Subutex and Valium taper and is scheduled for discharge in the afternoon. Pt slept for 6 hours. Respirations even and unlabored. Pt's last COWS was 3 and last CIWA was 2. Pt c/o of left arm pain. Toradol PRN given as ordered. Pt c/o muscle aches and constipation during shift. Milk of Magnesia PRN and Robaxin PRN were give as ordered. No N/V noted during the shift. Fall and Sz precautions observed. Bed in lowest position. Side rails up x2. Call light functioning and within reach. All needs attended and met. Will endorse to day shift nurse.
--- NOTE | 2016-10-12 07:46 | NUR ---
START OF SHIFT NOTE: Report received from clinical trial educator nurse. Pt is a 26 yo male, admitted for Opiate, Benzo, Barbiturate dependence on 10/05/16. Pt to be discharged today. Pt is alert and oriented X4. Color good, skin warm and dry. Respirations even and unlabored. Pt on room restriction due to being inappropriate with staff members. Resting in bed. Safety precautions observed. Call light within reach.
[2016-10-12 08:00] VITALS: BP 124/74
[2016-10-12] MEDS: GABAPENTIN 300 MG CAPSULE PO SCH ×2 (08:59→14:28)
[2016-10-12] MEDS: BACLOFEN 10 MG TABLET PO SCH ×2 (08:59→14:27)
[2016-10-12] MEDS: MULTIVITAMINS,THERAPEUTIC TABLET PO SCH (09:00)
[2016-10-12] MEDS: CLONIDINE HCL 0.1 MG TABLET PO SCH ×2 (09:00→14:28)
[2016-10-12] MEDS: NICOTINE 21 MG/24HR PATCH TD SCH (09:00)
[2016-10-12] MEDS: NEOMY/BACITRAC/POLYMI OINT 28.35 GM TUBE TOP SCH (09:00)
--- NOTE | 2016-10-12 09:11 | NUR ---
VSS Discharge papers and medication bag signed.
[2016-10-12 13:44] VITALS: BP 108/56
[2016-10-12 14:28] VITALS: BP 120/80
--- NOTE | 2016-10-12 16:01 | NUR ---
Pt discharged in stable condition with all valuables, belongings and home meds. Pt denies SI/HI. To [facility] via [facility] private car.
== END 2016-10-12 16:01 | disposition home or self-care (01) | DRG 895 ==
LOC: SRC 10-05 01:38
PROVIDERS: ADMIT Internal Medicine; ATTEND Internal Medicine
PROC: HZ2ZZZZ Detoxification Services for Substance Abuse Treatment (ICD-10-PCS; principal; 2016-10-05)
PROC: HZ41ZZZ Group Counseling for Substance Abuse Treatment, Behavioral (ICD-10-PCS; 2016-10-06)
PROC: HZ31ZZZ Individual Counseling for Substance Abuse Treatment, Behavioral (ICD-10-PCS; 2016-10-07)
DX: F11.23 Opioid dependence with withdrawal (principal); Q78.0 Osteogenesis imperfecta; F14.20 Cocaine dependence, uncomplicated; F15.20 Other stimulant dependence, uncomplicated; F13.230 Sedative, hypnotic or anxiolytic dependence with withdrawal, uncomplicated; F17.210 Nicotine dependence, cigarettes, uncomplicated; G47.00 Insomnia, unspecified; F41.9 Anxiety disorder, unspecified; E86.0 Dehydration; D64.9 Anemia, unspecified; F12.90 Cannabis use, unspecified, uncomplicated; S00.212A Abrasion of left eyelid and periocular area, initial encounter; W22.8XXA Striking against or struck by other objects, initial encounter; Y92.231 Patient bathroom in hospital as the place of occurrence of the external cause; Z79.899 Other long term (current) drug therapy
CPT/HCPCS: 36415; 70030-TC; 71010; 80307; 80324; 80345; 80346; 80349; 80361; 83690; 83735; 84443; 85025; 86592; 86705; 86803; 87340; 87806; A4663; G0480; J1885; Q0163

== ENCOUNTER 2017-04-22 22:10 | Inpatient (IN) | payer BC, OTHER ==
[~2017-04-22] VITALS: Ht 177.8 cm; Wt 66.2 kg
[~2017-04-22 22:10] MED LIST: BACL10TA PO; CLON0.1T14 PO; GABA-534 PO; MAGN400C PO; METH-406 PO; MV-M1TAB37 PO; NICO-724 BC; TRAZ-147 PO; [UNRECOGNIZED DRUG - CODE] PO; [UNRECOGNIZED DRUG - OTHER] PO
[2017-04-23] MEDS ORDERED: MAG HYDROX/AL HYDROX/SIMETH 30 ML LIQUID UDC PO PRN (00:45)
[2017-04-23] MEDS ORDERED: ONDANSETRON 4 MG/2 ML VIAL IM PRN (00:45)
[2017-04-23] MEDS ORDERED: MAGNESIUM HYDROXIDE 30 ML LIQUID UDC PO PRN (00:45)
[2017-04-23] MEDS ORDERED: diphenhydrAMINE 50 MG CAPSULE PO PRN (00:45)
[2017-04-23] MEDS ORDERED: METHOCARBAMOL 750 MG TABLET PO PRN (00:45)
[2017-04-23] MEDS ORDERED: DIAZEPAM 5 MG TABLET PO PRN (00:45)
[2017-04-23] MEDS ORDERED: MIRALAX 17 GM POWD.PACK PO PRN (00:45)
[2017-04-23] MEDS ORDERED: DICYCLOMINE HCL 20 MG TABLET PO PRN (00:45)
[2017-04-23] MEDS ORDERED: ONDANSETRON ODT 4 MG TAB.RAPDIS SL PRN (00:45)
[2017-04-23] MEDS ORDERED: BUPRENORPHINE HCL 2 MG TAB.SUBL SL PRN (00:45)
[2017-04-23] MEDS ORDERED: LORAZEPAM 2 MG/1 ML VIAL IM PRN (00:45)
[2017-04-23] MEDS ORDERED: CLONIDINE HCL 0.1 MG TABLET PO PRN (00:45)
[2017-04-23] MEDS ORDERED: ACETAMINOPHEN 325 MG TABLET PO PRN (00:45)
[2017-04-23] MEDS ORDERED: DIAZEPAM 10 MG TABLET PO PRN ×2 (00:45)
[2017-04-23] MEDS ORDERED: LOPERAMIDE HCL 2 MG CAPSULE PO PRN ×2 (00:45)
[2017-04-23] MEDS ORDERED: VARE1TAB PO (02:01)
[2017-04-23] MEDS ORDERED: PROP20TA7 PO (02:01)
[2017-04-23] MEDS ORDERED: IBUP-1955 PO (02:01)
[2017-04-23] MEDS ORDERED: QUET100T PO (02:01)
[2017-04-23 02:15] LABS: *AMPHETAMINE, URINE POSITIVE (NEGATIVE); *BARBITURATE, URINE POSITIVE (NEGATIVE); *CANNABINOID, URINE POSITIVE (NEGATIVE); *COCCAINE, URINE POSITIVE (NEGATIVE); *OPIATE, URINE POSITIVE (NEGATIVE); *PHENCYCLIDINE SCREEN,URINE NEGATIVE (NEGATIVE)
[2017-04-23] MEDS ORDERED: NEOM1PAC2 TP (02:59)
[2017-04-23] MEDS ORDERED: HYDR1.5C TP (03:04)
[2017-04-23 04:00] VITALS: BP 121/71
[2017-04-23] MEDS: IBUPROFEN 600 MG TABLET PO PRN (06:00)
[2017-04-23] MEDS ORDERED: DIAZEPAM 10 MG TABLET ONE (06:15)
[2017-04-23] MEDS ORDERED: IBUPROFEN 600 MG TABLET ONE (06:16)
[2017-04-23 07:01] LABS: BASOPHILS # (AUTO) 0.1 K/uL (0.0-8.0); BASOPHILS % (AUTO) 0.7 % (0.0-2.0); EOSINOPHILS # (AUTO) 0.2 K/uL (0.0-0.7); EOSINOPHILS % (AUTO) 2.9 % (0.0-7.0); HEMATOCRIT 42.6 % (36.7-47.1); HEMOGLOBIN 14.8 g/dL (12.5-16.3); LYMPHOCYTES # (AUTO) 2.6 K/uL (20.0-40.0); LYMPHOCYTES % (AUTO) 32.7 % (20.5-51.5); MEAN CORPUSCULAR HEMOGLOBIN 29.3 uug (23.8-33.4); MEAN CORPUSCULAR HGB CONC 35 g/dL (32.5-36.3); MEAN CORPUSCULAR VOLUME 84.6 fL (73.0-96.2); MONOCYTES # (AUTO) 0.6 K/uL (2.0-10.0); MONOCYTES % (AUTO) 7.8 % (0.0-11.0); NEUTROPHILS # (AUTO) 4.4 K/uL (1.8-8.9); NEUTROPHILS % (AUTO) 55.9 % (38.5-71.5); PLATELET COUNT (AUTO) 256 K/uL (152-348); RED BLOOD CELL COUNT(AUTO) 5.04 MIL/uL (4.06-5.63); WHITE BLOOD COUNT (AUTO) 7.8 K/uL (3.6-10.2)
[2017-04-23 07:16] LABS: ALANINE AMINOTRANSFERASE 27 U/L (16-63); ALKALINE PHOSPHATASE 87 U/L (50-136); AMYLASE 35 U/L (25-115); ASPARTATE AMINOTRANSFERASE 21 U/L (15-37); BILIRUBIN,TOTAL 0.5 mg/dL (0.2-1.0); CARBON DIOXIDE 32 mmol/L (21-32); CHLORIDE 103 mmol/L (98-107); CREATININE 0.8 mg/dL (0.6-1.3); GLUCOSE 121 mg/dL (74-106); LIPASE 84 U/L (73-393); MAGNESIUM 1.9 mg/dL (1.8-2.4); POTASSIUM 3.6 mmol/L (3.5-5.1); TOTAL PROTEIN, SERUM 7.9 g/dL (6.4-8.2); UREA NITROGEN, BLOOD 15 mg/dL (7-18)
[2017-04-23 07:17] LABS: ETHANOL < 3 MG/DL (0-0)
[2017-04-23 07:25] LABS: THYROID STIMULATING HORMONE 1.723 mIU/mL (0.358-3.740)
[2017-04-23 08:22] VITALS: BP 127/73
[2017-04-23] MEDS: PHENOBARBITAL 60 MG TABLET PO SCH ×4 (10:48→22:04)
[2017-04-23] MEDS: BUPRENORPHINE HCL 2 MG TAB.SUBL SL SCH ×4 (10:48→22:05)
[2017-04-23 13:40] VITALS: BP 105/69
[2017-04-23] MEDS ORDERED: GABAPENTIN 300 MG CAPSULE PO SCH (15:00)
[2017-04-23 16:50] VITALS: BP 107/64
[2017-04-23] MEDS: GABAPENTIN 300 MG CAPSULE PO SCH ×2 (17:14→22:04)
[2017-04-23] MEDS ORDERED: QUETIAPINE FUMARATE 100 MG TABLET PO SCH (18:00)
[2017-04-23 20:00] VITALS: BP 116/73
[2017-04-23] MEDS: QUETIAPINE FUMARATE 100 MG TABLET PO SCH (22:05)
[2017-04-23] MEDS: KETOROLAC TROMETHAMINE 30 MG INJ IM PRN (22:29)
[2017-04-24] VITALS: BP 120/75
[2017-04-24 04:00] VITALS: BP 114/82
[2017-04-24 08:00] VITALS: BP 116/75
[2017-04-24] MEDS: BUPRENORPHINE HCL 2 MG TAB.SUBL SL SCH ×3 (08:19→20:41)
[2017-04-24] MEDS: GABAPENTIN 300 MG CAPSULE PO SCH ×3 (08:19→20:41)
[2017-04-24] MEDS: KETOROLAC TROMETHAMINE 30 MG INJ IM PRN (08:21)
[2017-04-24] MEDS ORDERED: TUBERCULIN,PURIF.PROT.DERIV. 5 TU/0.1 ML TEST ID ONE (09:00)
[2017-04-24] MEDS ORDERED: PHENOBARBITAL 60 MG TABLET PO SCH (09:00)
[2017-04-24 12:45] VITALS: BP 104/60
[2017-04-24] MEDS: DIAZEPAM 10 MG TABLET PO SCH ×2 (14:01→20:41)
[2017-04-24 16:00] VITALS: BP 121/72
[2017-04-24 16:07] LABS: HEPATITIS B SURFACE AG Negative (Negative)
[2017-04-24 20:00] VITALS: BP 111/64
[2017-04-24] MEDS: BACLOFEN 10 MG TABLET PO SCH (20:41)
[2017-04-24] MEDS: CLONIDINE HCL 0.1 MG TABLET PO SCH (20:41)
[2017-04-24] MEDS: IBUPROFEN 600 MG TABLET PO PRN (20:41)
[2017-04-24] MEDS: QUETIAPINE FUMARATE 100 MG TABLET PO SCH (20:41)
[2017-04-25] VITALS: BP 110/69
[2017-04-25 04:00] VITALS: BP 108/61
[2017-04-25] MEDS: GABAPENTIN 300 MG CAPSULE PO SCH (08:48)
[2017-04-25] MEDS: BACLOFEN 10 MG TABLET PO SCH ×3 (08:48→20:42)
[2017-04-25] MEDS: CLONIDINE HCL 0.1 MG TABLET PO SCH ×3 (08:49→20:46)
[2017-04-25 09:00] VITALS: BP 106/68
[2017-04-25] MEDS ORDERED: BUPRENORPHINE HCL 2 MG TAB.SUBL SL SCH (09:00)
[2017-04-25] MEDS ORDERED: PHENOBARBITAL 60 MG TABLET PO SCH (09:00)
[2017-04-25] MEDS ORDERED: DIAZEPAM 5 MG TABLET PO SCH (09:00)
[2017-04-25 13:00] VITALS: BP 106/60
[2017-04-25] MEDS ORDERED: NAPROXEN 500 MG TABLET PO SCH (13:00)
[2017-04-25] MEDS: DIAZEPAM 5 MG TABLET PO SCH ×2 (13:06→17:13)
[2017-04-25] MEDS: GABAPENTIN 400 MG CAPSULE PO SCH ×2 (14:31→20:42)
[2017-04-25] MEDS: ACETAMINOPHEN 325 MG TABLET PO SCH ×2 (14:31→20:43)
[2017-04-25] MEDS: BUPRENORPHINE HCL 2 MG TAB.SUBL SL SCH ×2 (14:31→20:43)
[2017-04-25 17:00] VITALS: BP 134/87
[2017-04-25 20:00] VITALS: BP 100/60
[2017-04-25] MEDS: QUETIAPINE FUMARATE 100 MG TABLET PO SCH (20:42)
[2017-04-25] MEDS: NAPROXEN 500 MG TABLET PO SCH (20:43)
[2017-04-25] MEDS ORDERED: DIAZEPAM 10 MG TABLET PO SCH (21:00)
[2017-04-25] MEDS: TRAZODONE 100 MG TABLET PO PRN (23:47)
[2017-04-26] VITALS (7 sets, daily range): BP systolic 98–121; BP diastolic 46–70
[2017-04-26] MEDS: CLONIDINE HCL 0.1 MG TABLET PO SCH ×3 (08:29→20:36)
[2017-04-26] MEDS: BACLOFEN 10 MG TABLET PO SCH (08:30)
[2017-04-26] MEDS: NAPROXEN 500 MG TABLET PO SCH ×2 (08:30→20:37)
[2017-04-26] MEDS: GABAPENTIN 400 MG CAPSULE PO SCH ×3 (08:30→20:37)
[2017-04-26] MEDS: BUPRENORPHINE HCL 2 MG TAB.SUBL SL SCH ×3 (08:31→20:38)
[2017-04-26] MEDS: ACETAMINOPHEN 325 MG TABLET PO SCH ×3 (08:31→20:37)
[2017-04-26] MEDS: DIAZEPAM 5 MG TABLET PO SCH ×3 (08:31→20:37)
[2017-04-26] MEDS: FAMOTIDINE 20 MG TABLET PO SCH (08:34)
[2017-04-26] MEDS ORDERED: PHENOBARBITAL 60 MG TABLET PO SCH (09:00)
[2017-04-26] MEDS ORDERED: METHYL SALICYLATE/MENTHOL CREAM 28 GM TUBE TOP PRN (11:30)
[2017-04-26] MEDS ORDERED: PREGABALIN 50 MG CAPSULE PO SCH (13:00)
[2017-04-26] MEDS: BACLOFEN 20 MG TABLET PO SCH ×2 (15:47→20:36)
[2017-04-26] MEDS: PREGABALIN 100 MG CAPSULE PO SCH (20:36)
[2017-04-26] MEDS: QUETIAPINE FUMARATE 100 MG TABLET PO SCH (20:37)
[2017-04-26] MEDS: TRAZODONE 100 MG TABLET PO PRN (22:10)
[2017-04-27 08:12] VITALS: BP 108/54
[2017-04-27] MEDS ORDERED: PHENOBARBITAL 60 MG TABLET PO SCH (09:00)
[2017-04-27] MEDS: FAMOTIDINE 20 MG TABLET PO SCH (09:00)
[2017-04-27] MEDS: ACETAMINOPHEN 325 MG TABLET PO SCH ×3 (09:45→21:11)
[2017-04-27] MEDS: GABAPENTIN 400 MG CAPSULE PO SCH ×3 (09:45→21:12)
[2017-04-27] MEDS: NAPROXEN 500 MG TABLET PO SCH ×2 (09:45→21:12)
[2017-04-27] MEDS: CLONIDINE HCL 0.1 MG TABLET PO SCH ×3 (09:45→15:01)
[2017-04-27] MEDS: BACLOFEN 20 MG TABLET PO SCH ×3 (09:45→21:12)
[2017-04-27] MEDS: PREGABALIN 100 MG CAPSULE PO SCH (09:45)
[2017-04-27] MEDS: DIAZEPAM 5 MG TABLET PO SCH ×2 (09:46→21:13)
[2017-04-27] MEDS: BUPRENORPHINE HCL 2 MG TAB.SUBL SL SCH ×2 (09:46→21:13)
[2017-04-27] MEDS: HYDROXYZINE PAMOATE 25 MG CAPSULE PO PRN (11:04)
[2017-04-27] MEDS: KETOROLAC TROMETHAMINE 30 MG INJ IM PRN (11:09)
[2017-04-27 12:33] VITALS: BP 112/62
[2017-04-27 16:57] VITALS: BP 99/63
[2017-04-27 20:00] VITALS: BP 105/70
[2017-04-27] MEDS ORDERED: PREGABALIN 100 MG CAPSULE PO SCH (21:00)
[2017-04-27] MEDS: QUETIAPINE FUMARATE 100 MG TABLET PO SCH (21:11)
[2017-04-27] MEDS: PREGABALIN 50 MG CAPSULE PO SCH (21:12)
[2017-04-27] MEDS: CLONIDINE HCL 0.2 MG TABLET PO SCH (21:13)
[2017-04-28 08:00] VITALS: BP 119/76
[2017-04-28] MEDS ORDERED: DIAZEPAM 5 MG TABLET PO SCH (09:00)
[2017-04-28] MEDS ORDERED: BUPRENORPHINE HCL 2 MG TAB.SUBL SL SCH (09:00)
[2017-04-28] MEDS: BACLOFEN 20 MG TABLET PO SCH ×3 (09:21→20:33)
[2017-04-28] MEDS: ACETAMINOPHEN 325 MG TABLET PO SCH ×3 (09:21→20:33)
[2017-04-28] MEDS: FAMOTIDINE 20 MG TABLET PO SCH (09:21)
[2017-04-28] MEDS: GABAPENTIN 400 MG CAPSULE PO SCH ×3 (09:21→20:33)
[2017-04-28] MEDS: NAPROXEN 500 MG TABLET PO SCH ×2 (09:22→20:33)
[2017-04-28] MEDS: CLONIDINE HCL 0.1 MG TABLET PO SCH ×2 (09:22→14:09)
[2017-04-28] MEDS: PREGABALIN 50 MG CAPSULE PO SCH ×2 (10:09→20:33)
[2017-04-28] MEDS: HYDROXYZINE PAMOATE 25 MG CAPSULE PO PRN (11:57)
[2017-04-28 12:00] VITALS: BP 124/76
[2017-04-28 16:00] VITALS: BP 125/87
[2017-04-28] MEDS ORDERED: GABA-536 PO (16:12)
[2017-04-28] MEDS ORDERED: TRAZ-147 PO (16:12)
[2017-04-28] MEDS ORDERED: DICY20TA28 PO (16:12)
[2017-04-28] MEDS ORDERED: CLON0.1T14 PO (16:12)
[2017-04-28] MEDS ORDERED: BACL20TA PO (16:12)
[2017-04-28] MEDS ORDERED: PREG50CA PO (16:12)
[2017-04-28] MEDS ORDERED: FAMO20TA8 PO (16:12)
[2017-04-28] MEDS ORDERED: QUET100T PO (16:12)
[2017-04-28] MEDS ORDERED: HYDR-3895 PO (16:12)
[2017-04-28] MEDS ORDERED: ACET325T53 PO (16:12)
[2017-04-28] MEDS ORDERED: NAPR500T4 PO (16:12)
[2017-04-28] MEDS ORDERED: CLON0.2T12 PO (16:12)
[2017-04-28 20:00] VITALS: BP 106/70
[2017-04-28] MEDS: CLONIDINE HCL 0.2 MG TABLET PO SCH (20:34)
[2017-04-28] MEDS: QUETIAPINE FUMARATE 100 MG TABLET PO SCH (20:34)
[2017-04-28] MEDS: TRAZODONE 100 MG TABLET PO PRN (23:20)
[2017-04-29 08:00] VITALS: BP 119/76
[2017-04-29 08:12] VITALS: BP 119/64
[2017-04-29] MEDS: GABAPENTIN 400 MG CAPSULE PO SCH (08:12)
[2017-04-29] MEDS: PREGABALIN 50 MG CAPSULE PO SCH (08:12)
[2017-04-29] MEDS: CLONIDINE HCL 0.1 MG TABLET PO SCH (08:12)
[2017-04-29] MEDS: ACETAMINOPHEN 325 MG TABLET PO SCH (08:12)
[2017-04-29] MEDS: BACLOFEN 20 MG TABLET PO SCH (08:12)
[2017-04-29] MEDS: KETOROLAC TROMETHAMINE 30 MG INJ IM PRN (08:14)
[2017-04-29] MEDS: NAPROXEN 500 MG TABLET PO SCH (08:30)
[2017-04-29] MEDS: FAMOTIDINE 20 MG TABLET PO SCH (08:31)
== END 2017-04-29 09:50 | disposition home or self-care (01) | DRG 895 ==
LOC: SRC 04-23 00:02
PROVIDERS: ADMIT Internal Medicine; ATTEND Internal Medicine
PROC: HZ2ZZZZ Detoxification Services for Substance Abuse Treatment (ICD-10-PCS; principal; 2017-04-23)
PROC: HZ31ZZZ Individual Counseling for Substance Abuse Treatment, Behavioral (ICD-10-PCS; 2017-04-25)
PROC: HZ41ZZZ Group Counseling for Substance Abuse Treatment, Behavioral (ICD-10-PCS; 2017-04-27)
DX: F11.23 Opioid dependence with withdrawal (principal); F14.20 Cocaine dependence, uncomplicated; Q78.0 Osteogenesis imperfecta; F13.232 Sedative, hypnotic or anxiolytic dependence with withdrawal with perceptual disturbance; F41.0 Panic disorder [episodic paroxysmal anxiety]; F17.210 Nicotine dependence, cigarettes, uncomplicated; R26.81 Unsteadiness on feet; Z59.1 Inadequate housing; Z79.899 Other long term (current) drug therapy; G89.4 Chronic pain syndrome; G62.9 Polyneuropathy, unspecified; F32.9 Major depressive disorder, single episode, unspecified; M84.672D Pathological fracture in other disease, left ankle, subsequent encounter for fracture with routine healing; M84.6 Pathological fracture in other disease; R73.9 Hyperglycemia, unspecified; F15.10 Other stimulant abuse, uncomplicated; F12.10 Cannabis abuse, uncomplicated; G47.00 Insomnia, unspecified
CPT/HCPCS: 36415; 70030-TC; 73630; 80307; 80324; 80345; 80346; 80349; 80353; 80361; 83690; 83735; 84443; 85025; 86580; 86592; 86705; 86803; 87340; 87806; 97165; 97535; G0480; J1885; J8499

== ENCOUNTER 2017-06-01 22:42 | Emergency (ER) | payer BC, OTHER ==
[~2017-06-01] VITALS: Ht 175.3 cm; Wt 77.1 kg
[~2017-06-01 22:42] MED LIST changes: +ACET325T53 PO; -BACL10TA PO; +BACL20TA PO; +CLON0.2T12 PO; +DICY20TA28 PO; +FAMO20TA8 PO; -GABA-534 PO; +GABA-536 PO; +HYDR-3895 PO; -MAGN400C PO; -MV-M1TAB37 PO; +NAPR-1009 PO; +PREG50CA PO; +QUET100T PO; -[UNRECOGNIZED DRUG - CODE] PO; -[UNRECOGNIZED DRUG - OTHER] PO
--- NOTE | 2017-06-01 22:46 | NUR ---
Dr. Watson at bedside for MSE.
--- NOTE | 2017-06-01 22:53 | NUR ---
Patient released to [facility] officer Miroslava #[id number].
[2017-06-01 22:57] VITALS: BP 149/86
== END 2017-06-01 22:58 ==
LOC: ER 22:43
DX: Z00.00 Encounter for general adult medical examination without abnormal findings (principal); Z79.891 Long term (current) use of opiate analgesic; Z79.2 Long term (current) use of antibiotics; Z79.899 Other long term (current) drug therapy
CPT/HCPCS: 99281; A4663

== ENCOUNTER 2017-08-22 00:50 | Inpatient (IN) | payer BC, OTHER ==
[~2017-08-22] VITALS: Ht 177.8 cm; Wt 63.5 kg
[2017-08-22] MEDS ORDERED: ONDANSETRON ODT 4 MG TAB.RAPDIS SL PRN (21:15)
[2017-08-22] MEDS ORDERED: ONDANSETRON 4 MG/2 ML VIAL IM PRN (21:15)
[2017-08-22] MEDS ORDERED: DICYCLOMINE HCL 20 MG TABLET PO PRN (21:15)
[2017-08-22] MEDS ORDERED: LORAZEPAM 2 MG/1 ML VIAL IM PRN (21:15)
[2017-08-22] MEDS ORDERED: ACETAMINOPHEN 325 MG TABLET PO PRN (21:15)
[2017-08-22] MEDS ORDERED: MAGNESIUM HYDROXIDE 30 ML LIQUID UDC PO PRN (21:15)
[2017-08-22] MEDS ORDERED: BUPRENORPHINE HCL 2 MG TAB.SUBL SL PRN (21:15)
[2017-08-22] MEDS ORDERED: MAG HYDROX/AL HYDROX/SIMETH 30 ML LIQUID UDC PO PRN (21:15)
[2017-08-22] MEDS ORDERED: LOPERAMIDE HCL 2 MG CAPSULE PO PRN ×2 (21:15)
[2017-08-22] MEDS ORDERED: DIAZEPAM 5 MG TABLET PO PRN (21:15)
[2017-08-22] MEDS ORDERED: MIRALAX 17 GM POWD.PACK PO PRN (21:15)
[2017-08-22] MEDS ORDERED: DIAZEPAM 10 MG TABLET PO PRN ×2 (21:15)
--- NOTE | 2017-08-22 21:15 | NUR ---
Intake Assessment Assessment done at intake office. He is a 27 y.o male admitted for supervised withdrawal from multiple substance use. Pt came in moderately intoxicated. Patient is restless, anxious & noted with agitation. Pt has slurred speech, racing thoughts, with poor eye contact and concentration. Patient uses walker boots d/t a fracture on his left foot. He appears disheveled, unkempt & odorous. No complaints of shortness of breath noted at this time. Vitals taken immediately B/P 112/70, RI 107, RR 20, Temp 98.5, O2Sat 97%. Pt is coherent and is able to sign consent & able to respond to questions. Explained to pt unit protocols such as Q4H Vitals signs check & regarding destruction of any controlled substances brought to facility and handling of all medications. Pt already seen by Dr. Gaines. Will continue admission process when pt arrives in the unit.
[2017-08-22 21:30] VITALS: BP 112/70
--- NOTE | 2017-08-22 21:30 | NUR ---
ADMISSION NOTE: Patient is a 27 y.o male admitted at [facility] at approximately 2126 pm of 08/22/17 for medically supervised withdrawal from multiple substance use. Pt came in via wheelchair d/t pt has a left foot fracture. Body search done and skin check performed, no contraband found. Pt noted with track porras on right arm. Pt is 5'10" tall and weighs 140 lbs in a standing scale. Pt is cooperative during assessment. Patient is oriented to floor unit and room. Patient follows a regular diet with no known food and drug allergies. Pt wishes to be full Code. Patient is alert & oriented x4. Pt came in moderately intoxicated. Patient is restless, anxious & noted with agitation. Pt has slurred speech, racing thoughts, with poor eye contact and concentration. Patient uses walker boots d/t a fracture on his left foot. He appears disheveled, unkempt & odorous. Pt reports 7/10 body aches & 4/10 headache. No hand tremors noted at this time. Bowel sounds active in all four quadrants. Last bowel noted was yesterday 08/21/17. Lung Sounds clear throughout. Pt denies SOB, cough or chest pain at this time. Pt denies visual, auditory & tactile hallucinations. COWS 8 CIWA 6 noted. Pt has medical history such as Anxiety, Depression & Panic Disorder. 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 Pt also reported Hx of Seizure from benzo withdrawal ( last one was Jan 2017). Pt currently denies SI/HI. Blood Labs were drawn. Pt was able to provide urine sample for drug screen upon admission and is voiding clear yellow urine with no problems. Substance use: 1. Xanax- Patient stated that he first had Xanax 4 years ago. For the past 10 days, patient verbalized taking 6-8mg of Xanax daily. Last use 08/22/17, 2mg. 2. Etizolam- Patient stated that he first had Etizolam 7 years ago. For the past 10 days, patient verbalized taking 2-3mg of Etizolam daily. Last use 08/22/17, 2mg. 3. Heroin IV- Patient stated that he first had Heroin 4 years ago. For the past 10 days, patient verbalized using 4-5gm of Heroin IV daily. Last use 08/22/17, 4gm. 4. Subutex- Patient has been on Subutex maintenance for 28 days. Patient takes 10-12mg of Subutex SL daily. Last use was a week ago. 5. ETOH- Patient has been drinking unspecified amount of Alcohol on an intermittent non-daily basis for the last 10 days. 6. Methamphetamine IV- Patient stated that he first had Meth 7 years ago. For the past 10 days, patient verbalized taking 0.5mg of Meth IV daily. Last use 08/22/17, 0.5mg. 7. Cocaine- Patient stated that he first had Cocaine 9 years ago. For the past 10 days, patient verbalized taking 0.5 mgdaily. Last use 08/22/17, 0.5mg. 8. Marijuana- Patient stated that he first smoked Marijuana 8 years ago. For the past 10 days, patient verbalized smoking 2-3gm. Last use 08/22/17, 2gm. Pt stated that he was admitted to multiple treatment center in the past but unable to recall. Pt was able to stay sober for 27 days and relapsed 10 days ago. He decided to come to treatment because "I want to be treated, I need help so I can walk out of here". Per patient, his longest period of sobriety was 7 months in Jan 2016 to July 2016. Patient smokes 20 cigarettes daily. Pt placed on 1:1 for safety per MD orders. Fall & Seizure precautions are in place. Will attend to all needs. Educated patient about plan of care including detox, group therapy, individual therapy, and discharge planning. Encouraged patient to verbalized feelings. Encourage fluids as tolerated. Safety precautions are in place. Bed locked in lowest position. Both side rails padded & up. Call light within pt's reach. Will continue to monitor.
[2017-08-22 21:47] LABS: *AMPHETAMINE, URINE POSITIVE (NEGATIVE); *BARBITURATE, URINE NEGATIVE (NEGATIVE); *CANNABINOID, URINE POSITIVE (NEGATIVE); *COCCAINE, URINE POSITIVE (NEGATIVE); *OPIATE, URINE POSITIVE (NEGATIVE); *PHENCYCLIDINE SCREEN,URINE NEGATIVE (NEGATIVE)
[2017-08-22] MEDS: IBUPROFEN 600 MG TABLET PO PRN (22:13)
[2017-08-22] MEDS: CLONIDINE HCL 0.1 MG TABLET PO PRN (22:13)
[2017-08-22] MEDS: BACLOFEN 20 MG TABLET PO PRN (22:13)
--- NOTE | 2017-08-22 22:13 | NUR ---
PRN Clonidine/Baclofen/Motrin Patient is noted with restlessness, anxiety, & agitation. Pt reports 7/10 body aches & 4/10 headache. PRN Clonidine, Baclofen & Motrin administered as ordered. Will monitor for effectiveness of medication.
[2017-08-22] MEDS ORDERED: BENZOCAINE/MENTH/CETYLPYRD LOZENGE MM PRN (22:15)
[2017-08-22] MEDS: diphenhydrAMINE 50 MG CAPSULE PO PRN (22:18)
--- NOTE | 2017-08-22 22:18 | NUR ---
PRN Cepacol & Benadryl Patient complains of sore throat & requests for medication to help her sleep. PRN Benadryl & Cepacol administered as ordered. Will monitor for effectiveness of medication.
[2017-08-22 22:48] LABS: ETHANOL < 3 MG/DL (0-0)
[2017-08-22 22:49] LABS: ALANINE AMINOTRANSFERASE 32 U/L (16-63); ALKALINE PHOSPHATASE 91 U/L (50-136); ASPARTATE AMINOTRANSFERASE 38 U/L (15-37); BILIRUBIN,TOTAL 0.9 mg/dL (0.2-1.0); CARBON DIOXIDE 27 mmol/L (21-32); CHLORIDE 95 mmol/L (98-107); CREATININE 1.2 mg/dL (0.6-1.3); GLUCOSE 120 mg/dL (74-106); MAGNESIUM 2.3 mg/dL (1.8-2.4); TOTAL PROTEIN, SERUM 8.8 g/dL (6.4-8.2); UREA NITROGEN, BLOOD 22 mg/dL (7-18)
[2017-08-22 22:51] LABS: BASOPHILS % (AUTO) 0.5 % (0.0-2.0); EOSINOPHILS # (AUTO) 0.2 K/uL (0.0-0.7); EOSINOPHILS % (AUTO) 1.7 % (0.0-7.0); HEMATOCRIT 43.7 % (36.7-47.1); HEMOGLOBIN 15.7 g/dL (12.5-16.3); LYMPHOCYTES # (AUTO) 1.9 K/uL (20.0-40.0); MEAN CORPUSCULAR HEMOGLOBIN 30.1 uug (23.8-33.4); MEAN CORPUSCULAR HGB CONC 36 g/dL (32.5-36.3); MONOCYTES # (AUTO) 1.2 K/uL (2.0-10.0); MONOCYTES % (AUTO) 12.8 % (0.0-11.0); NEUTROPHILS # (AUTO) 5.9 K/uL (1.8-8.9); PLATELET COUNT (AUTO) 250 K/uL (152-348); WHITE BLOOD COUNT (AUTO) 9.2 K/uL (3.6-10.2)
--- NOTE | 2017-08-22 23:18 | NUR ---
PRN Reassessment Patient asleep in bed and appears calm & comfortable. Patient with no facial grimacing noted. Respiration even & unlabored. continues on a 1:1 for safety. Safety measures in place. Will continue to monitor.
[2017-08-23] MEDS ORDERED: THEA25PO MC (01:34)
[2017-08-23] MEDS ORDERED: VALE150C PO (01:34)
[2017-08-23] MEDS ORDERED: [UNRECOGNIZED DRUG - CODE] PO (01:34)
[2017-08-23 04:00] VITALS: BP 108/76
--- NOTE | 2017-08-23 07:03 | NUR ---
Start of Shift Note: Patient is a 27 y.o admitted last night 08/22/17 for medically supervised withdrawal from multiple substance use. Patient came in moderately intoxicated, presented with restlessness, anxiety, agitation, chills, body aches & headache. Pt placed on a 5-day Subutex & 4-day Valium taper to be started today. COWS 8 CIWA 6 noted. PRN Benadryl, Clonidine, Baclofen, Motrin & Cepacol administered during my shift and were effective. Patient compliant with medications. Pt has left foot fracture and uses a walker boots. Pt placed on 1:1 for safety and will use wheelchair for ambulating aid. Patient slept for a total of 6 hours. Fluid intake 500ml, Voided 1x with no bowel movement noted. Encouraged pt to increase fluid intake. Safety measures in place. Will continue to monitor patient.
--- NOTE | 2017-08-23 07:40 | NUR ---
START OF SHIFT NOTE Received report from night nurse, 27 year old male admitted for multiple substance withdrawal, orders to be start Valium and Subutex taper. Per endorsement patient received PRN Clonidine, Baclofen, Motrin, Cepacol, Benadryl effective per night nurse, LALI-6,MEENA-8, slept for 6 hours. Patient cont on 1:1 for safety. Received patient alert awake, anxious, agitated,restless, flat facial expression, dirty room linens on the floor. Patient is due for scheduled medications. All safety measures in place. Will cont to monitor.
[2017-08-23 08:00] VITALS: BP 111/63
[2017-08-23] MEDS ORDERED: PREGABALIN 100 MG CAPSULE PO SCH (09:00)
[2017-08-23] MEDS ORDERED: TUBERCULIN,PURIF.PROT.DERIV. 5 TU/0.1 ML TEST ID ONE (09:00)
[2017-08-23] MEDS: DIAZEPAM 10 MG TABLET PO SCH ×4 (09:25→21:34)
[2017-08-23] MEDS: BUPRENORPHINE HCL 2 MG TAB.SUBL SL SCH ×3 (09:25→21:33)
[2017-08-23] MEDS: NEOMY/BACITRAC/POLYMI OINT 28.35 GM TUBE TOP SCH ×2 (09:42→17:17)
[2017-08-23] MEDS ORDERED: PREGABALIN 25 MG CAPSULE PO SCH (10:30)
[2017-08-23] MEDS: PREGABALIN 50 MG CAPSULE PO SCH ×3 (10:32→21:33)
[2017-08-23 12:00] VITALS: BP 112/70
--- NOTE | 2017-08-23 12:20 | NUR ---
PRN TYLENOL Patient c/o of general body aches 08/05. PRN Tylenol 650mg PO given as ordered. Will cont to monitor and reassess the pt.
--- NOTE | 2017-08-23 13:20 | NUR ---
TYLENOL REASSESSMENT Per patient medication was effective pain lower to 2/10.
[2017-08-23 16:00] VITALS: BP 116/65
[2017-08-23] MEDS: METHOCARBAMOL 750 MG TABLET PO PRN (17:17)
--- NOTE | 2017-08-23 17:17 | NUR ---
PRN ROBAXIN Patient is c/o of myalgia, PRN Robaxin 750mg PO given as ordered. Will cont to monitor and reassess.
--- NOTE | 2017-08-23 18:17 | NUR ---
ROBAXIN REASSESSMENT Per patient Robaxin was effective myalgia lower to 2/10.
[2017-08-23] MEDS: CLONIDINE HCL 0.1 MG TABLET PO PRN (18:33)
--- NOTE | 2017-08-23 18:33 | NUR ---
PRN CLONIDINE,VALIUM Patient noted anxious, agitated, restless, sweats, light headed CIWA score noted 10, PRN Valium 10mg PO and clonidine 0.1mg PO given as ordered. Will cont to monitor and reassess the pt.
--- NOTE | 2017-08-23 19:13 | NUR ---
END OF SHIFT NOTE Gave report to night nurse, patient admitted for Benzo/ETOH, Heroin, Subutex, Meth, Estazolam withdrawal. Patient continues with Subutex and Valium taper tolerating well. During shift patient received PRN Robaxin, Tylenol, noted to be effective and Valium,Clonidine will endorse to night nurse to reassess the patient. Patient cont on 1:1 for safety. Patient is compliant with treatment plan and medications. Encourage PO fluids as tolerated. All safety measures in place. Patient endorsed to night nurse in stable condition.
--- NOTE | 2017-08-23 19:30 | NUR ---
START OF SHIFT Pt is a 27 year old male admitted for medically supervised withdrawals from poly substance abuse; continues on Valium and Subutex taper as ordered and is tolerating well.Per endorsement pt received PRN Clonidine and Valium, effective at this time.Last CIWA-9,COWS-9 as of 1600. Patient continues on 1:1 for safety,hx left foot fracture and is using a wheel chair for safety. Pt is A/A/O X 4.Appears anxious and restless. PO fluids encouraged.All safety measures in place,call light within reach. Will continue to monitor.
[2017-08-23 20:00] VITALS: BP 106/68
[2017-08-23] MEDS ORDERED: QUETIAPINE FUMARATE 100 MG TABLET PO ONE (21:15)
[2017-08-23] MEDS: IBUPROFEN 600 MG TABLET PO PRN (21:34)
--- NOTE | 2017-08-23 21:36 | NUR ---
PRN MEDS PRN MOTRIN AND SEROQUEL GIVEN ORDERED FOR C/O BACK PAIN AND INSOMNIA.WILL MONITOR FOR EFFECTIVENESS.
--- NOTE | 2017-08-23 22:30 | NUR ---
PRN F/U PT IS CALM AND RESTING IN BED WITH EYES CLOSED.NO S/S OF DISTRESS NOTED.SITTER IS AT BEDSIDE.WILL CONTINUE TO MONITOR.
[2017-08-24] VITALS: BP 94/54
--- NOTE | 2017-08-24 | NUR ---
COWS/CIWA DEFERRED DUE TO PT BEING ASLEEP.
[2017-08-24 04:00] VITALS: BP 94/52
--- NOTE | 2017-08-24 04:00 | NUR ---
COWS/CIWA DEFERRED DUE TO PT BEING ASLEEP.NO S/S OF DISTRESS NOTED.SITTER IS AT BEDSIDE,WILL CONTINUE MONITORING FOR SAFETY.
--- NOTE | 2017-08-24 06:41 | NUR ---
END OF SHIFT Pt is a 27 year old male admitted for medically supervised withdrawals from poly substance abuse; continues on Valium and Subutex taper as ordered and is tolerating well.Last CIWA-7,COWS- as of 1999.COWS/CIWA deferred at midnight and 0400 d/t pt being asleep. Patient continues on 1:1 for safety,hx left foot fracture and is using a wheel chair for safety. Pt is A/A/O X 4.PRN meds motrin and seroquel were given and were effective. Pt slept 9 hrs,fluid intake was 350 mls,voided x 2, B/M X 1 . All safety measures in place. Call light within reach, will continue to monitor.
--- NOTE | 2017-08-24 07:30 | NUR ---
START OF SHIFT NOTE Received report from night nurse, 27 year old male admitted for multiple substance withdrawal, patient cont with Valium and Subutex taper tolerating well. Per endorsement patient received PRN Benadryl, Seroquel, Motrin, effective per night nurse, LALI-7,MEENA-7, slept for 9 hours. Patient cont on 1:1 for safety. Received patient alert awake, anxious, agitated, restless, labile facial expression, room appearance dirty linens on the floor empty bottles on the floor. Patient is due for scheduled medications. All safety measures in place. Will cont to monitor.
[2017-08-24 08:00] VITALS: BP 103/63
[2017-08-24] MEDS: NEOMY/BACITRAC/POLYMI OINT 28.35 GM TUBE TOP SCH ×2 (08:35→16:15)
[2017-08-24] MEDS: PREGABALIN 50 MG CAPSULE PO SCH ×3 (08:35→21:14)
[2017-08-24] MEDS ORDERED: HYDROXYZINE PAMOATE 25 MG CAPSULE PO PRN (09:00)
[2017-08-24] MEDS ORDERED: BUPRENORPHINE HCL 2 MG TAB.SUBL SL SCH (09:00)
[2017-08-24] MEDS ORDERED: DIAZEPAM 10 MG TABLET PO SCH (09:00)
--- NOTE | 2017-08-24 11:07 | NUR ---
PRN VISTARIL Patient c/o of anxiety, agitation, restless, PRN Vistaril 25mg PO given as ordered. Will cont to monitor and reassess.
[2017-08-24 12:00] VITALS: BP 105/65
--- NOTE | 2017-08-24 12:07 | NUR ---
VISTARIL REASSESSMENT Per patient Vistaril was effective.
[2017-08-24] MEDS: DIAZEPAM 10 MG TABLET PO SCH ×3 (14:38→22:32)
[2017-08-24] MEDS: HYDROXYZINE PAMOATE 25 MG CAPSULE PO SCH ×2 (14:44→21:17)
[2017-08-24] MEDS: BUPRENORPHINE HCL 2 MG TAB.SUBL SL SCH ×2 (14:46→21:16)
--- NOTE | 2017-08-24 15:01 | NUR ---
Client was prompted to attend group sessions and agreed to do so.
[2017-08-24 16:00] VITALS: BP 110/72
[2017-08-24] MEDS: BACLOFEN 20 MG TABLET PO PRN ×2 (16:20→22:32)
[2017-08-24] MEDS: IBUPROFEN 600 MG TABLET PO PRN (16:20)
--- NOTE | 2017-08-24 16:20 | NUR ---
PRN MEDS Patient was c/o of muscle spasms 5/10, back pain 5/10. PRN Motrin 600mg PO, Baclofen 20mg PO as ordered. Will cont to monitor and reassess.
--- NOTE | 2017-08-24 17:20 | NUR ---
PRN REASSESSMENT Per patient medications were effective pain and muscle spasms lower to 2/10.
--- NOTE | 2017-08-24 18:58 | NUR ---
END OF SHIFT NOTE Gave report night nurse, Patient continues on Subutex and Valium taper tolerating well. Patient cont with 1:1 for safety. Patient was seen and evaluated by PT. Patient presented with muscle spasms, lower back pain, anxiety, agitation, restless. Patient received scheduled medications along with PRN Motrin, Baclofen, Vistaril noted to be effective. Patient was seen by Dr. Thomson with new order of Vistaril 50mg medication administer medication as ordered. Vital signs WNL. Patient remained compliant with medications and treatment. Endorsed patient to night nurse to stable condition.
--- NOTE | 2017-08-24 19:30 | NUR ---
Start of Shift Pt is a 27 y/o male admitted 08/22/17 for medically managed withdrawal/detox from Xanax, Etizolam, Heroin, Subutex, ETOH, Methamphetamine salts, Cocaine. Pt is a full code, on regular diet with NKA. Pt found in room in bed watching tv/sleeping, arousable to voice. Pt is with a 1:1 sitter for safety/unsteady gait. Pt is able to answer questions, respond to questions appropriately. Eye contact is avoidant/stares into space, affect flat/blunted. Behavior hypervigilent/critical of meds/timing/dosing. Evening meds reviewed with pt with Baclofen requested for muscle spasms, and Seroquel 100mg PO requested for sleep. Will continue to monitor pt for duration of shift, promptly attending to all needs
[2017-08-24 20:00] VITALS: BP 91/51
[2017-08-24] MEDS ORDERED: QUETIAPINE FUMARATE 100 MG TABLET PO ONE (21:00)
--- NOTE | 2017-08-24 21:17 | NUR ---
PRN Med Seroquel 100mg PO requested by Pt for insomnia, order obtained by CN. Will continue to monitor, reassessing pt in 1 hour, and promptly attending to all needs Addendum: 08/25/17 at 0229 by RAY JORDAN RN duplicate
--- NOTE | 2017-08-24 21:17 | NUR ---
PRN Med Seroquel 100mg PO requested by Pt for insomnia/agitation, order obtained through CN. Will continue to monitor, reassessing in 1 hour, and promptly attending to all needs
--- NOTE | 2017-08-24 22:17 | NUR ---
PRN Reassessment Seroquel 100mg PO given 1 hour prior. At present, pt reports decreased anxiety and drowsiness, decreased agitation observed. Med effective. Will continue to monitor pt, promptly attending to all needs
--- NOTE | 2017-08-24 22:32 | NUR ---
Baclofen 20mg PO requested by pt for muscle spasms, 08/05. Will continue to monitor pt, reassessing in 1 hour, and promptly attending to all pt needs
--- NOTE | 2017-08-24 23:32 | NUR ---
PRN Reassessment Baclofen 20mg PO given 1 hour prior for muscle spasms. at present, pt sleeping, RR 14, even and nonlabored. Med effective.
--- NOTE | 2017-08-25 | NUR ---
VS's COWS/CIWA Deferred Midnight VS's COWS/CIWA deferred r/t pt sleeping/refused. RR 14, even and non-labored. Will continue to monitor, attending promptly to all pt needs
[2017-08-25] MEDS: HYDROXYZINE PAMOATE 25 MG CAPSULE PO SCH ×4 (02:30→20:30)
--- NOTE | 2017-08-25 02:30 | NUR ---
Med Refused Visoril 50mg PO scheduled refused r/t pt sleeping/refused. RR 14, even and non labored. Will continue to monitor
[2017-08-25 03:10] LABS: HEPATITIS B SURFACE AG Negative (Negative)
--- NOTE | 2017-08-25 04:00 | NUR ---
VS's COWS/CIWA Deferred 0400 VS's COWS/CIWA deferred r/t pt sleeping/refused. RR 14, even and non-labored. Will continue to monitor, attending promptly to all pt needs
[2017-08-25 06:00] VITALS: BP 99/61
--- NOTE | 2017-08-25 07:20 | NUR ---
End of Shift Pt is a 27 y/o male admitted 08/22/17 for medically managed withdrawal/detox from Xanax, Etizolam, Heroin, Subutex, ETOH, Methamphetamine salts, Cocaine. Pt is a full code, on regular diet with NKA. Last COWS was 12 and CIWA was 11 at 1999. PRNs for shift included Baclofen 20g PO and Seroquel 100mg PO. Pt slept for 8 hours, with 600 intake, 2 voids and 0 BMs Will continue to monitor pt for duration of shift, promptly attending to all needs
--- NOTE | 2017-08-25 07:25 | NUR ---
Start of shift Report received from material handler 1st shift nurse. Pt is a 27 y/o male admitted 08/22/17 for medically managed withdrawal/detox from Xanax, Estazolam, Heroin, Subutex, ETOH, Methamphetamine salts, Cocaine. Per material handler 1st shift nurse pts COWS 12 CIWA 11. Upon start of shift pt was in his room, when greeted pt stated Where the fuck are my medication, Im going crazy here . Pt was agitated, anxious, presented with sweats and tremors. Pts room observed, there is candy wraps and juices spilled on the floor, pts clothes are thrown around the room. Pt is unable to keep still, pt observed constantly moving around. Pts expression is irritable and worried. Pt is on a 1:1 for safety, due to unsteady gait. Pt stated Im fucking annoyed that I have to have a person follow me all the time. Fuck this shit. Spoke to pt, reoriented pt , pt verbalized understanding was still irritated. During assessment Pt A&O x 3 lung sounds clear, pt was having tachycardia with HR of 92. Pt c/o abdominal cramps, and pain in his left leg which he stated he strained rating it 8/10. Pt has a immobilizer on his left leg. Pt is currently on a 5 day Subutex and 4 day Valium taper to manage withdrawal symptoms. Pt received PRN medications last night Baclofen and Seroquel, medication was partially effective per patient. Bed in lowest position. Side rails up x2. Call light functioning and within reach. All needs attended and met. Will continue to monitor.
[2017-08-25 08:00] VITALS: BP 115/72
[2017-08-25] MEDS: BUPRENORPHINE HCL 2 MG TAB.SUBL SL SCH ×3 (08:57→22:54)
[2017-08-25] MEDS: NEOMY/BACITRAC/POLYMI OINT 28.35 GM TUBE TOP SCH ×2 (08:57→17:00)
[2017-08-25] MEDS: DIAZEPAM 10 MG TABLET PO SCH ×3 (08:57→22:54)
[2017-08-25] MEDS: PREGABALIN 50 MG CAPSULE PO SCH ×3 (08:58→22:54)
[2017-08-25] MEDS ORDERED: DIAZEPAM 5 MG TABLET PO SCH (09:00)
[2017-08-25 12:00] VITALS: BP 114/65
--- NOTE | 2017-08-25 13:45 | NUR ---
Event Note Pt approached the nursing station and seemed very agitated. Pt stated Where the fuck are my meds man, I have been waiting all this time, I need my fucking medication Spoke to pt reoriented pt and walked back to his room, pt educated on the medication schedule and the times he is getting his medications. Offered PRN medications to accommodate his symptoms while waiting for his scheduled medication. Pt stated Fuck this man I dont want any PRNs ill just wait for my scheduled medication, I guess Ill just have to fucking sit here and wait. Educated pt on breathing techniques to reduce stress and anxiety. Pt stated I dont give a shift about these techniques I want my fucking medication. Pt educated on plan of care, pt verbalized understanding. All needs met will continue to follow plan of care and monitor pt.
--- NOTE | 2017-08-25 15:25 | NUR ---
Client was prompted to attend group sessions and agreed to do so.
[2017-08-25 16:00] VITALS: BP 108/76
--- NOTE | 2017-08-25 19:05 | NUR ---
End Of Shift Report given to evening or night nurse supervisor nurse, plan of care reviewed, VS monitored closely q 4 hours. Withdrawal symptoms were closely monitored, medications given as scheduled. Initial COWS 11 CIWA 9. Patient encouraged adequate PO fluid intake as tolerated. Patient presented with tremors sweats, and anxiety during the day. Pt did not receive any PRN medications during the day. Last COWS 15 CIWA 12. Per patient, Subutex and Valium have been helping him with his withdrawal symptoms. Pt ate all of his meals, attended some groups and activities. Patient encouraged to attend all group therapies/sessions to learn new coping skills to recent relapse, patient denies SI/HI. all safety measures in place, bed in lowest locked position, call light within reach. All needs met and attended.
--- NOTE | 2017-08-25 19:15 | NUR ---
Start of shift note Received report from day shift nurse. Pt is a 27 yo male, A+Ox4, presenting to [facility] for Benzo/ETOH/Opiate withdrawal. Pt is on 1:1 sitter for unsteady gait. Pt noted to be agitated, anxious, restless, and having unsteady gait. Pt has HX of Anxiety, depression, panic disorder, and seizure which will be monitored during shift. Pt is on 5 day Subutex and 5 day Valium tapers, tolerated well. Respirations even and unlabored. Will continue to monitor.
[2017-08-25 20:28] VITALS: BP 122/71
[2017-08-25] MEDS: QUETIAPINE FUMARATE 100 MG TABLET PO SCH (22:54)
[2017-08-26 00:10] VITALS: BP 117/76
[2017-08-26] MEDS: HYDROXYZINE PAMOATE 25 MG CAPSULE PO SCH ×4 (02:30→22:43)
[2017-08-26 04:22] VITALS: BP 112/71
--- NOTE | 2017-08-26 07:00 | NUR ---
End of shift note Pt was continuously noted to be agitated, anxious, and restless. Pt remains on 1:1 sitter for unsteady gait/safety. Pt remained in room for majority of shift except to get food from kitchen, to interact with other patients in recreational room, and to go smoke on smoking patio. Pt is on 5 day Subutex and 4 day Valium tapers, tolerated well. Pt was not given any PRN medications during shift. Pt slept for a total of 6 HRS. Last COWS: 8 and Last CIWA: 8 @0400. Respirations even and unlabored. Will endorse to day shift nurse.
--- NOTE | 2017-08-26 07:12 | NUR ---
Start of Shift Notes: Received patient in his room with a 1:1. Laying in bed with eyes closed. Alert and oriented x 4. Arousable when his name is called. Denies S/I or H/I noted. No AV hallucinations noted. Patient is a 27 year old male admitted for BZO/opiate/ETOH withdrawal who was placed on a 5-day Subutex taper and 4-day Valium taper as ordered. No adverse reactions noted. Educated patient on his current plan of care for the day and his medication regimen. Encouraged oral fluid intake and encouraged group participation to learn new skills to prevent relapse. Will continue to monitor. Last COWS 8/CIWA 8. Slept for 6 hours.
[2017-08-26 08:00] VITALS: BP 94/51
--- NOTE | 2017-08-26 08:30 | NUR ---
Behavior Note: Patient called nurse to go in his room. Nurse approached patient in a calm and professional manner. All of a sudden, patient yelled "Why the fuck am I on a fucking one to one!" Patient was informed that he was on a 1:1 due to safety, and unsteady gait and was encouraged not to scream and be more respectful to the staff. He yells back "No, I don't give a fuck, my doctor already cleared me. I don't want anyone in my fucking room. I'm so sick and tired of having people in my room the whole time!" Patient again was encouraged to exhibit appropriate behavior and to avoid being verbally threatening to staff. Patient yells again while thrashing his linen and pillows and says "Just get the fuck out of my room. I don't fucking want you in my room. I don't want my meds!" Charge nurse intervened, staff intervened as well. Patient needs to be constantly redirected and encouraged to exhibit appropriate behavior. Kept patient in a safe place with a 1:1 within arm's reach as per MDs order. Per MD notes, 1:1 will be discontinued after patient is re-evaluated or cleared by PT. Charge nurse called PT and left a message.
[2017-08-26] MEDS ORDERED: DIAZEPAM 5 MG TABLET PO SCH (09:00)
[2017-08-26] MEDS: BUPRENORPHINE HCL 2 MG TAB.SUBL SL SCH ×2 (09:06→22:44)
[2017-08-26] MEDS: PREGABALIN 50 MG CAPSULE PO SCH ×3 (09:07→22:43)
[2017-08-26] MEDS: DIAZEPAM 5 MG TABLET PO SCH ×2 (09:07→12:43)
[2017-08-26] MEDS: BACLOFEN 20 MG TABLET PO PRN ×2 (09:09→14:14)
[2017-08-26] MEDS: QUETIAPINE FUMARATE 25 MG TABLET PO PRN ×2 (09:09→23:58)
--- NOTE | 2017-08-26 09:09 | NUR ---
Baclofen 20 mg PO given: Patient noted with complain of 6/10 back pain. Non-pharmacological interventions provided but ineffective. Medicated patient with Baclofen 20 mg PO given as ordered. Will monitor for effectiveness.
--- NOTE | 2017-08-26 09:09 | NUR ---
Seroquel 25 mg PO given: Patient is severely agitated and anxious. Unable to be redirected with non-pharmacological interventions. He is seen thrashing his linen while being redirected by staff. Medicated patient with Seroquel 25 mg PO as ordered. Will monitor for effectiveness.
--- NOTE | 2017-08-26 10:05 | NUR ---
PT eval: PT re-eval done today. Patient is OK to be off 1:1. Notified MD Thomson and DC'd 1:1 at this time. Patient is OK to ambulate ad won with mediboot as tolerated.
--- NOTE | 2017-08-26 10:09 | NUR ---
Re-assessment: Seroquel and Baclofen Patient appears more calm and at ease at this time. Cooperative with staff. He states PRN Seroquel and Baclofen was effective. He states "My pain is about a 2/10 now." Will continue to monitor.
[2017-08-26 12:00] VITALS: BP 130/75
--- NOTE | 2017-08-26 13:47 | NUR ---
Therapist prompted client to attend group session twice daily and client stated that he would attend.
--- NOTE | 2017-08-26 14:14 | NUR ---
Baclofen 20 mg PO given: Patient complains of 6/10 generalized pain. Non-pharmacological intervention provided but ineffective. Medicated patient with Baclofen 20 mg PO as ordered. Will monitor for effectiveness.
--- NOTE | 2017-08-26 15:14 | NUR ---
Communication/Re-assessment Baclofen: Patient verbalizes that PRN Baclofen was effective. PL 05/08. He requested Baclofen 20 mg PO to be given scheduled QID. Notified MD Thomson and orders obtained. Orders noted and carried out. Patient is now on Baclofen 20 mg PO QID.
[2017-08-26] MEDS ORDERED: DIAZEPAM 10 MG TABLET PO PRN ×2 (15:45)
[2017-08-26] MEDS ORDERED: DIAZEPAM 5 MG TABLET PO PRN (15:45)
[2017-08-26 16:00] VITALS: BP 107/55
[2017-08-26] MEDS: BACLOFEN 20 MG TABLET PO SCH ×2 (17:21→22:44)
--- NOTE | 2017-08-26 19:15 | NUR ---
End of Shift Notes: Patient continues to be on 5-day Subutex and PRN Valium as ordered. No adverse reactions noted. VS monitored closely. No significant abnormalities noted. Withdrawal symptoms were closely monitored. Initial COWS 14/CIWA 14, patient presented with anxiety, agitation, muscle aches, restlessness, pupil dilation, chills, hot flashes and sweating. Denies S/I or H/I noted. No AV hallucinations noted.. Medicated patient with Baclofen 20 mg PO and Seroquel 25 mg PO at 0909 due to agitation and myalgia with help after 1 hour. Last COWS 7/CIWA 4. Patient states that Subutex and Valium has been effective in reducing his withdrawal symptoms. Requires encouragement to participate in group and activities. PT eval done today. 1:1 Dcd. All needs met and attended. Will continue to monitor.
--- NOTE | 2017-08-26 19:16 | NUR ---
Start of Shift Note: Patient is a 27 y.o male admitted on 08/22/17 for medically supervised withdrawal from Opiate and Benzo's. Received patient asleep in bed but easily arousable. He is alert & oriented x4. He presented with flushed skin, sweating, chills, anxiety, agitation, & body aches. No hallucinations noted at this time. He completed his Valium taper and continues on his Subutex taper and tolerating well. Last COWS 7 CIWA 4. Pt received PRN Baclofen for body aches and Seroquel for agitation and were effective per report. . Closely monitored symptoms of withdrawal. Vitals noted WNL. Encourage pt to increase fluid intake as tolerated. Encourage pt to participate in group activities for relapse prevention. Educated patient of current plan of care for the night and medication regimen. Safety precaution in place. Bed locked in lowest position. Both side rails up. Call light within pt's reach. Will continue to monitor patient.
[2017-08-26 20:00] VITALS: BP 111/69
[2017-08-26] MEDS: QUETIAPINE FUMARATE 100 MG TABLET PO SCH (22:43)
[2017-08-26] MEDS: diphenhydrAMINE 50 MG CAPSULE PO PRN (23:58)
--- NOTE | 2017-08-26 23:58 | NUR ---
PRN Seroquel & Benadryl Patient noted with anxiety & agitation. Pt appears restless in bed and complains of inability to fall asleep. PRN Seroquel 25mg & Benadryl 50mg administered as ordered. Will monitor for effectiveness of medication.
[2017-08-27] VITALS: BP 112/69
--- NOTE | 2017-08-27 00:23 | NUR ---
PRN REASSESSMENT Pt. is in bed w/ his eyes closed. Pt.'s breathing is unlabored and even.
--- NOTE | 2017-08-27 00:58 | NUR ---
PRN Reassessment Patient asleep in bed and appears calm & comfortable. No s/s of facial grimacing noted. Safety measures in place. Will continue to monitor patient.
[2017-08-27] MEDS: HYDROXYZINE PAMOATE 25 MG CAPSULE PO SCH ×4 (02:30→21:08)
--- NOTE | 2017-08-27 04:00 | NUR ---
Vitals/COWS/CIWA deferred Patient asleep in bed. Patient requested not to be woken up for vitals at this time. Vitals/COWS/CIWA deferred. RR 14, Respiration even and non labored. Will continue to monitor patient.
--- NOTE | 2017-08-27 07:20 | NUR ---
End of Shift Note: Patient is a 27 y.o admitted on 08/22/17 for medically supervised withdrawal from multiple substance use. Pt presented with flushed skin, sweating, chills, anxiety, agitation, & body aches. He completed his Valium taper & continues on his Subutex taper. COWS 7 CIWA 4 noted. Pt received PRN Seroquel for agitation & Benadryl for sleep during my shift and were effective per report. Patient compliant with medications. Continue to closely monitor vitals and noted WNL. Non pharmacological intervention utilized. Pt slept for a total of 7 hours. Fluid intake: 1000 ml, Voided 1x with no bowel movement. Continue to encourage pt to participate in group therapy and to increase fluid intake as tolerated. All needs attended & met. Safety measures in place. Will endorse pt to day shift nurse.
--- NOTE | 2017-08-27 07:30 | NUR ---
START OF SHIFT Pt 27 y/o male admitted for opiate and benzo withdrawal. Pt received in room on bed with eyes closed resting, but easily arousable to name. Pt alert and oriented to name, place, and time. Perrla. Skin warm and moist to touch. Respirations even and unlabored. Bilateral hand tremors noted. Pt appears disheveled. Clothes and food wrappings scattered throughout the room. Encouraged to maintain hygiene. It was reported that pt slept for 7 hours last night. Last reported cows=7 ciwa=4 @2100. Pt is on a 5 day subutex taper and is on day 5. Pt is also on a prn valium. Bed on lowest position with side rails x2 up for safety. Call light within reach.
[2017-08-27 08:00] VITALS: BP 108/61
[2017-08-27] MEDS ORDERED: DIAZEPAM 5 MG TABLET PO SCH (09:00)
[2017-08-27] MEDS ORDERED: BUPRENORPHINE HCL 2 MG TAB.SUBL SL SCH (09:00)
[2017-08-27] MEDS: PREGABALIN 50 MG CAPSULE PO SCH ×3 (09:14→21:08)
[2017-08-27] MEDS: BACLOFEN 20 MG TABLET PO SCH ×4 (09:14→21:08)
[2017-08-27 12:00] VITALS: BP 132/92
[2017-08-27] MEDS: IBUPROFEN 600 MG TABLET PO PRN (13:33)
--- NOTE | 2017-08-27 13:34 | NUR ---
PRN Pt states has generalized body pain 4/10. Motrin po prn per MD order given and tolerated well.
--- NOTE | 2017-08-27 14:34 | NUR ---
WERNER CONLEY Pt observed laying in bed in room watching television.
[2017-08-27 16:00] VITALS: BP 133/80
--- NOTE | 2017-08-27 18:36 | NUR ---
END OF SHIFT Pt 27 y/o male admitted for opiate and benzo withdrawal. Pt alert and oriented to name, place, and time. Perrla. Skin warm and moist to touch. Respirations even and unlabored. Bilateral hand tremors noted. Pt with periods of anxiety this afternoon. Pt appears disheveled. Clothes and empty drink bottles scattered throughout the room. Encouraged to maintain hygiene. Pt observed mostly isolative to room throughout the day. Pt did not attend group activity. Pt easily irritable at times this morning. Pt was seen by MD today. Pt medication compliant and tolerated well. No ASE noted. Pt on a 5 day subutex taper and is on day 5. Cows=7@0800, 7@1200, and 6@1600. Ciwa=7@0800, 4@1200, and 4@1600. Pt is scheduled to be discharged tomorrow. Bed on lowest position with side rails x2 up for safety. Call light within reach.
[2017-08-27] MEDS: CLONIDINE HCL 0.1 MG TABLET PO PRN (19:25)
--- NOTE | 2017-08-27 19:25 | NUR ---
PRN ADMINISTRATION Pt. given PRN Clonidine 0.1 mg for increased s/s of withdrawal, anxiety, COWS 7. Will reassess pt. in 1 hr.
--- NOTE | 2017-08-27 19:51 | NUR ---
START OF SHIFT NOTE Rcvd report from outgoing nurse. Pt. is a 27 y/o male A/O to person, place, time, and purpose. Pt. was admitted for medically supervised withdrawal from Opiates and Benzodiazepines. Pt. presents w/ anxiety, restlessness, depressed mood, and flat affect. Pt. c/o body aches and sweats. Pt. attended group therapy sessions. Pt. denies S/I and H/I. PRN ibuprofen 600mg @ 1333 was given for headache, noted effective. Last COWS 6 and CIWA 4 @ 1600. Call light is within reach. Pt. will continue to be monitored and needs met.
[2017-08-27 20:00] VITALS: BP 134/84
--- NOTE | 2017-08-27 20:25 | NUR ---
PRN REASSESSMENT Pt. states relief of s/s, BP 118/82. COWS still 7.
[2017-08-27] MEDS: QUETIAPINE FUMARATE 100 MG TABLET PO SCH (21:08)
[2017-08-27] MEDS: diphenhydrAMINE 50 MG CAPSULE PO PRN (23:23)
[2017-08-27] MEDS: METHOCARBAMOL 750 MG TABLET PO PRN (23:23)
--- NOTE | 2017-08-27 23:23 | NUR ---
PRN ADMINISTRATION Pt. given Benadryl 50mg and Robaxin 750mg for restlessness and insomnia. Will reassess pt. in 1 hr.
--- NOTE | 2017-08-28 | NUR ---
COWS AND CIWA DEFERRED. V/S REFUSED Pt. is in bed w/ his eyes closed. Pt.'s breathing is unlabored and even.
[2017-08-28] MEDS: HYDROXYZINE PAMOATE 25 MG CAPSULE PO SCH ×2 (03:30→09:27)
--- NOTE | 2017-08-28 04:13 | NUR ---
COWS/CIWA DEFERRED / V/S REFUSED Pt. is in bed w/ his eyes closed. Pt.'s breathing is unlabored and even.
--- NOTE | 2017-08-28 07:18 | NUR ---
END OF SHIFT NOTE Endorsed pt. to oncoming nurse. Pt. is a 27 y/o male A/O to person, place, time, and purpose. Pt. was admitted for medically supervised withdrawal from Opiates and Benzodiazepines. Pt. presents w/ anxiety, restlessness, depressed mood, and flat affect. Pt. c/o body aches and sweats. Pt. denies S/I and H/I. PRN Clonidine 0.1mg @ 1925 was given for s/s of withdrawals (COWS 7), noted effective. PRN Benadryl 50mg and Robaxin 750mg @ 3 for insomnia and body aches, noted effective. Pt.s fluid intake was 1500ml. Pt. voided 2 times and slept for 6hrs. Last COWS 7 and CIWA 6 @ 1999. Bed in lowest position and side rails up x 2. Call light is within reach.
[2017-08-28 08:00] VITALS: BP 100/68
--- NOTE | 2017-08-28 08:05 | NUR ---
START OF SHIFT: RECEIVED PT A/O X 4.HE REPORTS MILD ANXIETY AND SWEATS AND CHILLS INTERMITTENTLY.PRN CLONIDINE GIVEN TO MANAGE S/S OF W/D. COWS 6 CIWA 6. DISCHARGE PLANNING IN PROGRESS FOR THIS AM. PT COMPLETED DETOX MEDS YESTERDAY.HE STATES HE FEELS MOTIVATED TO CONTINUE WITH RECOVERY PROCESS. WILL CONTINUE TO MONITOR AND PROVIDE SUPPORT.
[2017-08-28] MEDS ORDERED: DIAZEPAM 5 MG TABLET PO SCH (09:00)
[2017-08-28 09:27] VITALS: BP 110/75
[2017-08-28] MEDS: CLONIDINE HCL 0.1 MG TABLET PO PRN (09:27)
[2017-08-28] MEDS: BACLOFEN 20 MG TABLET PO SCH (09:27)
[2017-08-28] MEDS: PREGABALIN 50 MG CAPSULE PO SCH (09:27)
--- NOTE | 2017-08-28 10:20 | NUR ---
DISCHARGE: PT IS A/O X 4. HE DENIES S/I AND H/I. HE STATES HE FEELS ENTHUSIASTIC TOWARD RECOVERY. BELONGINGS RETURNED. EDUCATED PT ON DISCHARGE MEDS AND INSTRUCTIONS. PT EXPRESSED VERBAL UNDERSTANDING OF EDUCATION . [employer] ESCORTED PT TO [facility] WHERE HE WAS TRANSPORTED BY [employer] TO THE [facility] AT 1008.
== END 2017-08-28 10:08 | disposition other institution (70) | DRG 895 ==
LOC: SRC 20:23
PROVIDERS: ADMIT Internal Medicine; ATTEND Internal Medicine
PROC: HZ2ZZZZ Detoxification Services for Substance Abuse Treatment (ICD-10-PCS; principal; 2017-08-22)
PROC: HZ31ZZZ Individual Counseling for Substance Abuse Treatment, Behavioral (ICD-10-PCS; 2017-08-24)
PROC: HZ41ZZZ Group Counseling for Substance Abuse Treatment, Behavioral (ICD-10-PCS; 2017-08-25)
DX: F13.230 Sedative, hypnotic or anxiolytic dependence with withdrawal, uncomplicated (principal); F14.20 Cocaine dependence, uncomplicated; Q78.0 Osteogenesis imperfecta; L03.113 Cellulitis of right upper limb; F11.23 Opioid dependence with withdrawal; F15.23 Other stimulant dependence with withdrawal; Z59.0 Homelessness; Z91.89 Other specified personal risk factors, not elsewhere classified; F41.0 Panic disorder [episodic paroxysmal anxiety]; Z82.69 Family history of other diseases of the musculoskeletal system and connective tissue; Z59.1 Inadequate housing; Z79.899 Other long term (current) drug therapy; S82.892D Other fracture of left lower leg, subsequent encounter for closed fracture with routine healing; S92.902D Unspecified fracture of left foot, subsequent encounter for fracture with routine healing; X58.XXXD Exposure to other specified factors, subsequent encounter; F32.9 Major depressive disorder, single episode, unspecified; Y90.9 Presence of alcohol in blood, level not specified; G89.29 Other chronic pain; F17.210 Nicotine dependence, cigarettes, uncomplicated; F12.20 Cannabis dependence, uncomplicated; S41.131S Puncture wound without foreign body of right upper arm, sequela; X78.8XXS Intentional self-harm by other sharp object, sequela
CPT/HCPCS: 36415; 70030-TC; 80307; 80324; 80346; 80349; 80353; 80361; 83735; 85025; 86580; 86592; 86705; 86803; 87340; 87806; G0480; Q0163